=== PATIENT | male | born 1935 | race Caucasian/White ===

== ENCOUNTER 2017-01-29 18:07 | Inpatient (IN) | payer OTHER, MEDICARE ==
[~2017-01-29] VITALS: Ht 175.3 cm; Wt 76.6 kg
[2017-01-29 18:15] VITALS: BP 118/56; PULSE 89; RESP 18; TEMP 98.4; O2SAT 96
[2017-01-29 18:18] VITALS: BP 118/56; PULSE 89; RESP 18; TEMP 98.7; O2SAT 93
[2017-01-29] MEDS ORDERED: ONDANSETRON HCL 4 MG/2 ML VIAL IV ONE (18:30)
[2017-01-29] MEDS ORDERED: PIPERACIL-TAZO 4.5 GM PREMIX 100 ML IV STA (18:30)
[2017-01-29 18:35] VITALS: BP 114/59; PULSE 89; RESP 22; TEMP 98.8; O2SAT 96
[2017-01-29] MEDS ORDERED: SODIUM CHLOR 0.9% 1000 ML INJ 1,000 ML IV SCH (18:45)
--- NOTE | 2017-01-29 18:49 | RADRPT ---
EXAM DATE/TIME: 01/29/2017 18:41 [place] COMPARISON: No previous studies available for comparison. INDICATIONS : Short of breath, fever, and vomiting. MEDICAL HISTORY : None. SURGICAL HISTORY : None. ENCOUNTER: Initial ACUITY: 1 day PAIN SCORE: 0/10 LOCATION: Bilateral chest FINDINGS: A single view of the chest demonstrates tortuous aorta. Minimal basilar atelectasis. No focal consoli dation. No effusion. No pneumothorax. CONCLUSION: 1. Minimal basilar atelectasis. Tortuous aorta. No effusion or pneumothorax. Mike Valenzuela MD on January 29, 2017 at 18:46 Board Certified Radiologist. This report was verified electronically.
[2017-01-29 19:08] LABS: AUTOMATED NEUTROPHIL # 7.1 TH/MM3 (1.8-7.7); BASOPHIL % 0.2 % (0.0-2.0); EOSINOPHIL % 0.4 % (0.0-4.0); HEMATOCRIT 46.6 % (39.0-51.0); LYMPHOCYTE # 0.1 TH/MM3 (1.0-4.8); MEAN CELL VOLUME 98.2 FL (80.0-100.0); MEAN CORPUSCULAR HEMOGLOBIN 32.3 PG (27.0-34.0); MEAN CORPUSCULAR HGB CONC 32.9 % (32.0-36.0); MONO % 0.7 % (0.0-8.0); NEUT % 96.7 % (16.0-70.0); PLATELET COUNT 235 TH/MM3 (150-450); RED BLOOD COUNT 4.74 MIL/MM3 (4.50-5.90); RED CELL DISTRIBUTION WIDTH 12.7 % (11.6-17.2); WHITE BLOOD COUNT 7.3 TH/MM3 (4.0-11.0)
[2017-01-29 19:21] LABS: HEMO FLAGS DIFF FINAL
--- NOTE | 2017-01-29 19:22 | PD ---
HPI Chief Complaint: Fever Time Seen by Provider: 18:30 Travel History International Travel<30 days: No Contact w/Intl Traveler<30days: No Traveled to known affect area: No History of Present Illness HPI 81-year-old male presents today with complaint of fever chills, nausea vomiting and urinary tract infection. Patient has a history of urinary incontinence and has to self catheter himself at times. He states that 2 days ago he noted dysuria and cloudy urine. He states that he started taking antibiotics. He reports today feeling fever and chills. He also reports nausea vomiting 3 episodes. There is no other complaints time my examination. PFSH Past Medical History Cancer: Yes (prostate with radiation) Cardiovascular Problems: Yes Genitourinary: Yes (prostate ca, frequent bladder/UTI infections) Tetanus Vaccination: Unknown Past Surgical History Abdominal Surgery: Yes (gallbladder) Genitourinary Surgery: Yes (suprapubic catheter) Social History Alcohol Use: Yes (wine occassionally ) Tobacco Use: No Substance Use: No Allergies-Medications (Allergen,Severity, Reaction): Coded Allergies: Codeine (Verified Allergy, Unknown, 01/29/17) Review of Systems Except as stated in HPI: all other systems reviewed are Neg General / Constitutional: Positive: Fever, Chills HENT: No: Headaches, Neck Pain Cardiovascular: No: Chest Pain or Discomfort, Palpitations Respiratory: Positive: Cough (occasional cough with no colored phlegm), No: Shortness of Breath Gastrointestinal: Positive: Nausea, Vomiting, No: Diarrhea, Abdominal Pain Genitourinary: Positive: Dysuria, Incontinence Musculoskeletal: No: Weakness, Pain Neurologic: No: Weakness, Headache Physical Exam Narrative GENERAL: Well-developed well-nourished male in no acute distress. SKIN: Focused skin assessment warm/dry. HEAD: Atraumatic. Normocephalic. EYES: No scleral icterus. No injection or drainage. ENT: No nasal bleeding or discharge. Mucous membranes pink and moist. NECK: Trachea midline. Supple. CARDIOVASCULAR: Regular rate and rhythm. No murmur appreciated. RESPIRATORY: No accessory muscle use. Clear to auscultation. Breath sounds equal bilaterally. GASTROINTESTINAL: Abdomen soft, non-tender, nondistended. MUSCULOSKELETAL: No obvious deformities. No clubbing. No cyanosis. No edema. NEUROLOGICAL: Awake and alert. No obvious cranial nerve deficits. Motor grossly within normal limits. Normal speech. Data Data Last Documented VS Vital Signs Date Time Temp Pulse Resp B/P Pulse Ox O2 Delivery O2 Flow Rate FiO2 01/29/17 18:35 98.8 89 22 114/59 96 Nasal Cannula 2 Orders Complete Blood Count With Diff (01/29/17 18:30) Comprehensive Metabolic Panel (01/29/17 18:30) Lactic Acid Sepsis Protocol (01/29/17 18:30) Urinalysis - C+S If Indicated (01/29/17 18:30) Blood Culture (01/29/17 18:30) Chest, Single Ap (01/29/17 18:30) Blood Glucose (01/29/17:30) Ecg Monitoring (01/29/17:30) Iv Access Insert/Monitor (01/29/17:30) Oximetry (01/29/17 18:30) Oxygen Administration (01/29/17 18:30) Ondansetron Inj (Zofran Inj) (01/29/17 18:30) Piperacil-Tazo 4.5 Gm Premix (Zosyn 4.5 (01/29/17 18:30) Sodium Chlor 0.9% 1000 Ml Inj (Ns 1000 M (01/29/17 18:45) MDM Medical Decision Making Medical Screen Exam Complete: Yes Emergency Medical Condition: Yes Differential Diagnosis Pneumonia versus urosepsis versus bronchitis Narrative Course 81-year-old male presents with fevers chills nausea vomiting 24-36 hours. The patient states that he felt as though he had a urinary tract infection. He took his home antibiotics. Patient's workup is been initiated. He'll be signed out to Dr. Velez, physician replacing this physician at change of shift. Disposition and further treatment will be per Dr. Velez. Diagnosis Primary Impression: Sepsis Additional Impression: urinary tract infection, partially treated Laci Edward MD Jan 29, 2017 19:22
[2017-01-29 19:24] LABS: ALT (GPT) 33 U/L (12-78)
[2017-01-29 19:27] LABS: ALKALINE PHOSPHATASE 111 U/L (45-117); TOTAL BILIRUBIN ADULT 1.2 MG/DL (0.2-1.0)
[2017-01-29 19:31] LABS: ANION GAP 10 MEQ/L (5-15); AST (GOT) 52 U/L (15-37); BICARBONATE 22.9 MEQ/L (21.0-32.0); BLOOD UREA NITROGEN 18 MG/DL (7-18); CHLORIDE 105 MEQ/L (98-107); GLOMERULAR FILTRATION RATE 58 ML/MIN (>89); SODIUM (NA) 138 MEQ/L (136-145)
[2017-01-29 20:53] LABS: BACTERIA, URINE FEW /hpf; BLOOD, URINE MOD (NEG); COMMENT (UR) CATH-CULTURE IND; CULTURE IF INDICATED CATH CULTURE IND; GLUCOSE,URINE NEG (NEG); KETONE, URINE NEG (NEG); MUCUS URINE FEW /lpf (OCC); NITRITE,URINE NEG (NEG); PH, URINE 5.5 (5.0-8.5); SQUAMOUS EPITHELIAL CELL URINE 1 /hpf (0-5); URINE COLOR YELLOW (YELLW/STRAW)
[2017-01-29 21:17] VITALS: BP 84/52; PULSE 86; RESP 16; O2SAT 95
--- NOTE | 2017-01-29 21:19 | PD ---
Physical Exam Narrative Patient signed out to me by Dr. Edward to follow up testing and admit. Please see his documentation for full details. Briefly, patient is an 81-year-old male who occasionally has to self catheter to urinate. He was told by his physician to take antibiotics if he does have to do this. About 4 days ago he had self catheter, and he started himself on Macrobid. He has taken 4 days of the antibiotic, but developed fever and chills. He says he has pain with urination. Data Data Last Documented VS Vital Signs Date Time Temp Pulse Resp B/P Pulse Ox O2 Delivery O2 Flow Rate FiO2 01/29/17 21:17 86 16 84/52 95 Nasal Cannula 2 01/29/17 18:35 98.8 Orders Complete Blood Count With Diff (01/29/17 18:30) Comprehensive Metabolic Panel (01/29/17 18:30) Lactic Acid Sepsis Protocol (01/29/17 18:30) Urinalysis - C+S If Indicated (01/29/17 18:30) Blood Culture (01/29/17 18:30) Chest, Single Ap (01/29/17 18:30) Blood Glucose (01/29/17 18:30) Ecg Monitoring (01/29/17 18:30) Iv Access Insert/Monitor (01/29/17 18:30) Oximetry (01/29/17 18:30) Oxygen Administration (01/29/17 18:30) Ondansetron Inj (Zofran Inj) (01/29/17 18:30) Piperacil-Tazo 4.5 Gm Premix (Zosyn 4.5 (01/29/17 18:30) Sodium Chlor 0.9% 1000 Ml Inj (Ns 1000 M (01/29/17 18:45) Cath For Specimen (01/29/17 19:45) Urine Culture (01/29/17 20:20) Sodium Chlor 0.9% 1000 Ml Inj (Ns 1000 M (01/29/17 21:30) Labs Laboratory Tests Test 01/29/17 01/29/17 01/29/17 18:30 20:20 20:25 White Blood Count 7.3 TH/MM3 Red Blood Count 4.74 MIL/MM3 Hemoglobin 15.3 GM/DL Hematocrit 46.6 % Mean Corpuscular Volume 98.2 FL Mean Corpuscular Hemoglobin 32.3 PG Mean Corpuscular Hemoglobin 32.9 % Concent Red Cell Distribution Width 12.7 % Platelet Count 235 TH/MM3 Mean Platelet Volume 8.5 FL Neutrophils (%) (Auto) 96.7 % Lymphocytes (%) (Auto) 2.0 % Monocytes (%) (Auto) 0.7 % Eosinophils (%) (Auto) 0.4 % Basophils (%) (Auto) 0.2 % Neutrophils # (Auto) 7.1 TH/MM3 Lymphocytes # (Auto) 0.1 TH/MM3 Monocytes # (Auto) 0.1 TH/MM3 Eosinophils # (Auto) 0.0 TH/MM3 Basophils # (Auto) 0.0 TH/MM3 CBC Comment DIFF FINAL Differential Comment Sodium Level 138 MEQ/L Potassium Level 5.0 MEQ/L Chloride Level 105 MEQ/L Carbon Dioxide Level 22.9 MEQ/L Anion Gap 10 MEQ/L Blood Urea Nitrogen 18 MG/DL Creatinine 1.19 MG/DL Estimat Glomerular Filtration 58 ML/MIN Rate Random Glucose 82 MG/DL Calcium Level 8.8 MG/DL Total Bilirubin 1.2 MG/DL Aspartate Amino Transf 52 U/L (AST/SGOT) Alanine Aminotransferase 33 U/L (ALT/SGPT) Alkaline Phosphatase 111 U/L Total Protein 7.3 GM/DL Albumin 3.4 GM/DL Urine Color YELLOW Urine Turbidity HAZY Urine pH 5.5 Urine Specific [place] 1.026 Urine Protein 30 mg/dL Urine Glucose (UA) NEG mg/dL Urine Ketones NEG mg/dL Urine Occult Blood MOD Urine Nitrite NEG Urine Bilirubin NEG Urine Urobilinogen LESS THAN 2.0 MG/DL Urine Leukocyte Esterase LARGE Urine RBC 13 /hpf Urine WBC 49 /hpf Urine Squamous Epithelial 1 /hpf Cells Urine Bacteria FEW /hpf Urine Mucus FEW /lpf Microscopic Urinalysis Comment CATH-CULTURE IND Lactic Acid Level 2.3 mmol/L MDM Supervised Visit with JAIME: No Narrative Course Urinalysis is positive for UTI. Patient was given Zosyn by Dr. Edward. He and episode of hypotension, given IV fluids. Patient will be admitted for further management. Diagnosis Primary Impression: Sepsis Qualified Code: A41.9 - Sepsis, due to unspecified organism Additional Impression: urinary tract infection, partially treated Admitting Information Admitting Physician Requests: Admit Condition: Stable April Rankin MD Jan 29, 2017 21:19
[2017-01-29] MEDS: SODIUM CHLOR 0.9% 1000 ML INJ 1,000 ML IV SCH (21:29)
[2017-01-29] MEDS ORDERED: LACTULOSE SYRUP 20 GM/30 ML CUP PO PRN (21:30)
[2017-01-29] MEDS ORDERED: BISACODYL 10 MG SUPP RECTAL PRN (21:30)
[2017-01-29] MEDS ORDERED: ONDANSETRON HCL 4 MG/2 ML VIAL IVP PRN (21:30)
[2017-01-29] MEDS ORDERED: MAGNESIUM HYDROXIDE SUSP 30 ML CUP PO PRN (21:30)
[2017-01-29] MEDS ORDERED: MORPHINE SULFATE 4 MG/ML INJ IV PRN (21:30)
[2017-01-29] MEDS ORDERED: SENNOSIDES 8.6 MG TAB PO PRN (21:30)
[2017-01-29] MEDS ORDERED: SODIUM CHLOR 0.9% 1000 ML INJ 1,000 ML IV ONE (21:30)
[2017-01-29] MEDS ORDERED: SODIUM CHLORIDE 0.9% FLUSH 10 ML FLUSH IV FLUSH PRN (21:30)
[2017-01-29 21:34] VITALS: BP 94/54
--- NOTE | 2017-01-29 21:36 | HHI.HP ---
[facility] Primary Care Physician Arnaldo Canales M.D. Admission Diagnosis Diagnoses: (1) UTI (urinary tract infection) Diagnosis: Principal (2) Failure of outpatient treatment Diagnosis: Principal (3) Lactic acidosis Diagnosis: Principal (4) Hypotension Diagnosis: Principal (5) Dehydration Diagnosis: Principal Travel History International Travel<30 Days: No Contact w/Intl Traveler <30 Da: No Traveled to Known Affected Are: No History of Present Illness This is an 81-year-old male with a PMH of Prostate CA, Urinary Incontinence requiring Self-Catheterization and h/o Recurrent UTI who presented to the ER w/ complaints of fever and chills starting earlier today. Has been on antibiotics for UTI x4 days, now w/ fever/chills. On arrival, BP 180/56, HR 89, O2 sat 96% on RA, Afebrile. In the ER, had transient episode of hypotension with BP 84/52 , HR 86 s/p IVF w/ improvement. The WBC normal, elevated neutrophil count. GFR 58. Lactic Acid 2.3, repeat pending. UA with UTI. CXR with minimal basilar atelectasis. S/p Zosyn in ER. Review of Systems Except as stated in HPI: all other systems reviewed are Neg ROS: 14 point review of systems otherwise negative. Past Family Social History Past Medical History PMH: Prostate CA, Urinary Incontinence requiring Self-Catheterization and h/o Recurrent UTI Past Surgical History PAST SURGICAL HISTORY: Cholecystectomy Allergies: Coded Allergies: Codeine (Verified Allergy, Unknown, 01/29/17) Family History PAST FAMILY HISTORY: Reviewed. No h/o DM or CAD Social History PAST SOCIAL HISTORY: Occasional alcohol. Negative for tobacco or drugs. Physical Exam Vital Signs Vital Signs Date Time Temp Pulse Resp B/P Pulse Ox O2 Delivery O2 Flow Rate FiO2 01/29/17 21:34 94/54 01/29/17 21:17 86 16 84/52 95 Nasal Cannula 2 01/29/17 18:35 98.8 89 22 114/59 96 Nasal Cannula 2 01/29/17 18:35 94 Nasal Cannula 2 01/29/17 18:18 98.7 89 18 118/56 93 Room Air 01/29/17 18:18 18 93 Room Air 01/29/17 18:15 98.4 89 18 118/56 96 Physical Exam PE: GENERAL: Pleasant elderly white male in no acute distress. HEENT: PERRLA, EOMI. No scleral icterus or conjunctival pallor. No lid lag or facial droop. CARDIOVASCULAR: Regular rate and rhythm. No obvious murmurs to auscultation. No chest tenderness to palpation. RESPIRATORY: No obvious rhonchi or wheezing. Clear to auscultation. Breath sounds equal bilaterally. GASTROINTESTINAL: Abdomen soft, non-tender, nondistended. BS normal. MUSCULOSKELETAL: Extremities without clubbing, cyanosis, or edema. No obvious deformities. NEUROLOGICAL: Awake, alert and oriented x4. No focal neurologic deficits. Moving both upper and lower extremities spontaneously. Laboratory Laboratory Tests Test 01/29/17 01/29/17 01/29/17 18:30 20:20 20:25 White Blood Count 7.3 Red Blood Count 4.74 Hemoglobin 15.3 Hematocrit 46.6 Mean Corpuscular Volume 98.2 Mean Corpuscular Hemoglobin 32.3 Mean Corpuscular Hemoglobin 32.9 Concent Red Cell Distribution Width 12.7 Platelet Count 235 Mean Platelet Volume 8.5 Neutrophils (%) (Auto) 96.7 Lymphocytes (%) (Auto) 2.0 Monocytes (%) (Auto) 0.7 Eosinophils (%) (Auto) 0.4 Basophils (%) (Auto) 0.2 Neutrophils # (Auto) 7.1 Lymphocytes # (Auto) 0.1 Monocytes # (Auto) 0.1 Eosinophils # (Auto) 0.0 Basophils # (Auto) 0.0 CBC Comment DIFF FINAL Differential Comment Sodium Level 138 Potassium Level 5.0 Chloride Level 105 Carbon Dioxide Level 22.9 Anion Gap 10 Blood Urea Nitrogen 18 Creatinine 1.19 Estimat Glomerular Filtration 58 Rate Random Glucose 82 Calcium Level 8.8 Total Bilirubin 1.2 Aspartate Amino Transf 52 (AST/SGOT) Alanine Aminotransferase 33 (ALT/SGPT) Alkaline Phosphatase 111 Total Protein 7.3 Albumin 3.4 Urine Color YELLOW Urine Turbidity HAZY Urine pH 5.5 Urine Specific [place] 1.026 Urine Protein 30 Urine Glucose (UA) NEG Urine Ketones NEG Urine Occult Blood MOD Urine Nitrite NEG Urine Bilirubin NEG Urine Urobilinogen LESS THAN 2.0 Urine Leukocyte Esterase LARGE Urine RBC 13 Urine WBC 49 Urine Squamous Epithelial 1 Cells Urine Bacteria FEW Urine Mucus FEW Microscopic Urinalysis Comment CATH-CULTURE IND Lactic Acid Level 2.3 Date/Time Procedure Status Source Growth 01/29/17 20:20 Urine Culture Received Urine Catheterized Urine Pending 01/29/17 18:40 Aerobic Blood Culture Received Blood Peripheral Pending 01/29/17 18:40 Anaerobic Blood Culture Received Blood Peripheral Pending Result Diagram: 01/29/17182901/29/171829 Assessment and Plan Problem List: (1) UTI (urinary tract infection) ICD Code: N39.0 Status: Acute (2) Failure of outpatient treatment ICD Code: Z78.9 Status: Acute (3) Lactic acidosis ICD Code: E87.2 Status: Acute (4) Dehydration ICD Code: E86.0 Status: Acute (5) Hypotension ICD Code: I95.9 Status: Acute Assessment and Plan A/P: 1. UTI: U/a w/ UTI. H/o Recurrent UTI due to self-catheterization from urinary incontinence. S/p Zosyn in ER, will follow up Urine Culture, continue IV Abx, IVF for hydration. 2. Failed Outpatient Tx: On Macrobid x4 days, now w/ persistent UTI. Will continue w/ treatment as above. 3. Lactic Acidosis: Lactate 2.3, repeat Lactate pending. IVF for hydration, will follow up. 4. Dehydration: GFR 58, no previous labs for comparison. BUN/Creatinine normal. IVF for hydration, repeat labs in am. 5. Hypotension: BP 118/56, HR 89 on arrival, while in the ER had transient she with BP 84/52, HR 86. S/p IVF w/ improvement, BP currently 94/54, HR 82. Continue IVF, monitor BP. 6. DVT Prophylaxis: SCD/Teds. 7. Social work for d/c planning as needed. 8. Case discussed w/ ER physician at length. Physician Certification 2 Midnight Certification Type: Admission for Inpatient Services Order for Inpatient Services The services are ordered in accordance with Medicare regulations or non- Medicare payer requirements, as applicable. In the case of services not specified as inpatient-only, they are appropriately provided as inpatient services in accordance with the 2-midnight benchmark. Estimated LOS (days): 2 days is the estimated time the patient will need to remain in the hospital, assuming treatment plan goals are met and no additional complications. Post-Hospital Plan: Not yet determined Valentine Durham MD Jan 29, 2017 21:36
[2017-01-29 22:00] VITALS: PULSE 81
[2017-01-29 22:37] LABS: LACTIC ACID GHOST NOT REPORTABLE
[2017-01-29] MEDS ORDERED: SODIUM CHLORID 0.9% 500 ML INJ 500 ML IV ONE (23:15)
[2017-01-30] VITALS (68 sets, daily range): BP systolic 78–130; BP diastolic 42–68; PULSE 52–84; RESP 16–41; TEMP 98–100.2; O2SAT 91–100
[2017-01-30] MEDS ORDERED: SODIUM CHLOR 0.9% 1000 ML INJ 1,000 ML IV ONE (00:30)
--- NOTE | 2017-01-30 02:49 | PD.CONS ---
[facility] Service Critical Care Medicine Consult Requested By Beverly Larson Reason for Consult Critical care management of septic shock Primary Care Physician Arnaldo Canales M.D. History of Present Illness 81-year-old male with past medical history of prostate cancer status post radiation, urinary incontinence and intermittent in and out cath who presented to [facility] emergency department via [facility] with 2 day history of urinary discomfort. He states that on 01/29 he developed chills and rigors. He vomited 3. He denies flank pain or hematuria. ED workup demonstrated U/a c/w UTI. WBC is normal but with left shift. He states he was febrile per [facility]. He was normotensive initially with SBP 118/56 MAP 76, arriving at around 18:00 on 01/29. Lactic acid was 2.3. He was given Zosyn and 1 LNS bolus, MIVF and admitted to the floor by hospitalist. At around 23: 00 he developed hypotension and was given an additional 1.5 L bolus. Another 500 mL IV bolus is given but BP is 78/42 with MAP 54. Lactic acid has had a slight uptrend to 2.6. He is on NC. Denies CP or SOB. He is being transferred to [facility]. He states he has h/o prostate cancer with radiation ~15-20 years ago. Denies prostate surgery. States he had suprapubic cath about 6-7 years ago, was removed about 3-4 years ago. He is followed by Dr. Ivory with [facility] in [facility]. He has urinary incontinence and wears adult diaper. He states he does I/O cath on an as needed basis when he feels symptoms of urinary retention which ends up being approximately once every 2 weeks. He has had recurrent UTI, and therefore states he takes Macrobid for ~5 days starting each time that he does I/O cath. He states he started macrobid about 3-4 days ago which is the last time he did I/O cath. States he has been hospitalized for UTI in the past but last occasion requiring hospitalization was 6-7 years ago in [place]. He is unaware of any history of MDRO. Review of Systems Constitutional: COMPLAINS OF: Fever, Chills Gastrointestinal: COMPLAINS OF: Nausea, Anorexia Genitourinary: COMPLAINS OF: Urinary incontinence, Dysuria Past Family Social History Allergies: Coded Allergies: Codeine (Verified Allergy, Unknown, 01/29/17) Past Medical History Prostate cancer status post radiation 15-20 years ago Urinary incontinence Hard of hearing Past Surgical History Laparoscopic cholecystectomy Suprapubic urinary catheter placed 6-7 years ago (subsequently has been removed) Reported Medications Macrobid Family History He denies family history of cancer or heart disease Social History [id number] history of smoking. Quit at age 33. Drinks alcohol occasionally (wine) Denies use of illicit drugs and lives at home with his . Ambulates without assistance at baseline. He was previously living in [place] and relocated to [facility] about 4 years ago. His primary care physician is Dr. Choi. Physical Exam Vital Signs Vital Signs Date Time Temp Pulse Resp B/P Pulse Ox O2 Delivery O2 Flow Rate FiO2 01/30/17 00:00 98.0 84 16 78/42 94 01/29/17 21:34 94/54 01/29/17 21:17 86 16 84/52 95 Nasal Cannula 2 01/29/17 18:35 98.8 89 22 114/59 96 Nasal Cannula 2 01/29/17 18:35 94 Nasal Cannula 2 01/29/17 18:18 98.7 89 18 118/56 93 Room Air 01/29/17 18:18 18 93 Room Air 01/29/17 18:15 98.4 89 18 118/56 96 Physical Exam Temp 98, Pulse 80s, sinus rhythm on the monitor blood pressure 78/42, sats 98% on 3 L nasal cannula GENERAL: Elderly male who appears younger than stated age. Hard of hearing but alert and conversant. I assisted him with replacing his left hearing aid. SKIN: Warm and dry, no diaphoresis. HEAD: Atraumatic. Normocephalic. EYES: Pupils equal and round, 2 mm and reactive bilaterally. No scleral icterus. No injection or drainage. ENT: No nasal bleeding or discharge. Mucous membranes pink and moist. NECK: Trachea midline. No JVD. CARDIOVASCULAR: S1 and S2, regular, sinus rhythm on the monitor. No murmurs rubs or gallops appreciated. RESPIRATORY: Mild tachypnea without accessory muscle use. No wheezes Rales or rhonchi. GASTROINTESTINAL: Abdomen soft, some suprapubic distention just inferior to umbilicus. No tenderness, rebound, guarding. Bowel sounds present. No CVA tenderness. MUSCULOSKELETAL: Extremities without clubbing, cyanosis, or edema. No obvious deformities. NEUROLOGICAL: Awake and alert. No obvious cranial nerve deficits, though he is hard of hearing.. Motor grossly within normal limits. Moves all extremities spontaneously without focal deficit. Normal speech. Laboratory Laboratory Tests Test 01/29/17 01/29/17 01/29/17 01/29/17 18:30 20:20 20:25 23:25 White Blood Count 7.3 Red Blood Count 4.74 Hemoglobin 15.3 Hematocrit 46.6 Mean Corpuscular Volume 98.2 Mean Corpuscular Hemoglobin 32.3 Mean Corpuscular Hemoglobin 32.9 Concent Red Cell Distribution Width 12.7 Platelet Count 235 Mean Platelet Volume 8.5 Neutrophils (%) (Auto) 96.7 Lymphocytes (%) (Auto) 2.0 Monocytes (%) (Auto) 0.7 Eosinophils (%) (Auto) 0.4 Basophils (%) (Auto) 0.2 Neutrophils # (Auto) 7.1 Lymphocytes # (Auto) 0.1 Monocytes # (Auto) 0.1 Eosinophils # (Auto) 0.0 Basophils # (Auto) 0.0 CBC Comment DIFF FINAL Differential Comment Sodium Level 138 Potassium Level 5.0 Chloride Level 105 Carbon Dioxide Level 22.9 Anion Gap 10 Blood Urea Nitrogen 18 Creatinine 1.19 Estimat Glomerular Filtration 58 Rate Random Glucose 82 Calcium Level 8.8 Total Bilirubin 1.2 Aspartate Amino Transf 52 (AST/SGOT) Alanine Aminotransferase 33 (ALT/SGPT) Alkaline Phosphatase 111 Total Protein 7.3 Albumin 3.4 Urine Color YELLOW Urine Turbidity HAZY Urine pH 5.5 Urine Specific [place] 1.026 Urine Protein 30 Urine Glucose (UA) NEG Urine Ketones NEG Urine Occult Blood MOD Urine Nitrite NEG Urine Bilirubin NEG Urine Urobilinogen LESS THAN 2.0 Urine Leukocyte Esterase LARGE Urine RBC 13 Urine WBC 49 Urine Squamous Epithelial 1 Cells Urine Bacteria FEW Urine Mucus FEW Microscopic Urinalysis Comment CATH-CULTURE IND Lactic Acid Level 2.3 2.6 Date/Time Procedure Status Source Growth 01/29/17 20:20 Urine Culture Received Urine Catheterized Urine Pending 01/29/17 18:40 Aerobic Blood Culture Received Blood Peripheral Pending 01/29/17 18:40 Anaerobic Blood Culture Received Blood Peripheral Pending Result Diagram: 01/29/17182901/29/171829 Septic Shock Reassessment Heart: Regular rate and rhythm Lungs: Clear Skin: Warm Peripheral Pulses: Weak Right Radial Weak Left Radial Weak Right Posterior Tibial Weak Left Posterior Tibial Capillary Refill: Sluggish Assessment and Plan Assessment and Plan NEURO: Hard of hearing Awake and oriented Hearing aid left ear. RESP: Mild hypoxia Nasal cannula wean as tolerated. Incentive spirometry every hour awake. CV: Septic shock Lactic acidemia Monitor hemodynamics Serial lactic acid per sepsis protocol. Placing central venous line and will initiate Levophed to maintain MAP greater than 65. Monitor CVP. GI: Regular diet Bowel regimen per protocol. Zantac as per below FEN/RENAL/UROLOGY: Urinary incontinence Urinary retention, self cath at home with coude Insert coude catheter now as he appears to have ongoing urinary retention, monitor urine output q1hr during resuscitation for septic shock. Monitor BMP. Monitor electrolytes and replace as indicated. Avoid nephrotoxins when possible. Creatinine clearance calculated 47 Follow-up renal ultrasound Routine consult of urology, patient known to Dr. Ivory ID: Acute Urinary tract infection, complicated by urinary tract obstruction in the form of bladder distension/ h/o self cath Septic shock Hemodynamic monitoring and resuscitation as per above. Receive Zosyn 4.5 g IV in the emergency department. Will continue Zosyn 3.375 g IV every 6 hours (dosed based on calculated creatinine clearance of 47) Tobramycin 300 mg IV x1 . Risk/benefit d/w patient. Patient denies known history of multidrug resistant organism and last hospitalization was 6-7 years ago. Follow-up urine culture and blood culture. Called microbiology for gram stain but not yet available. Will be revaluated later this morning and requested call to floor when available. HEME: No acute hematologic issues. ENDO: Euglycemic PROPH: Zantac daily for stress ulcer prophylaxis. Lovenox 40 mg subcutaneous daily for DVT prophylaxis. ACCESS: Left IJ central venous line placed 01/30/17 #1 Discussed with Beverly Larson, discussed with floor RN, DIRECTOR OF AVIATION, microbiology department. Critical care time 50 minutes exclusive of separately billable procedures. Yoly Patel MD Jan 30, 2017 02:49
[2017-01-30] MEDS: ACETAMINOPHEN 325 MG TAB PO PRN (02:54)
[2017-01-30] MEDS ORDERED: SODIUM CHLORID 0.9% 500 ML INJ 500 ML IV ONE (03:00)
[2017-01-30] MEDS ORDERED: TERBUTALINE INJ 1 MG/ML AMP SQ PRN (03:00)
--- NOTE | 2017-01-30 04:01 | PD.PROCEDR ---
Procedure Note Procedure DATE: 01/30/17 CENTRAL LINE PLACEMENT: Left internal jugular vein. INDICATION: Central venous access CONSENT Informed consent for procedure was obtained from patient after discussion of risks, benefits, alternatives. DESCRIPTION OF THE PROCEDURE The patient was placed in supine position, mild Trendelenburg. The skin was cleansed with Chloraprep. Additional barrier precautions included large sterile drape, sterile gloves, sterile gown, face mask, and hat. 1 % lidocaine was used for local anesthesia. Under direct ultrasound guidance and on single attempt, the vein was accessed with an introducer needle. The guide wire was advanced and the tract was dilated. Using Seldinger technique a 7 Hungarian 20 cm antimicrobial coated triple-lumen catheter was advanced to a depth of 18 centimeters. The guide wire was removed. All ports had good return of dark venous blood and flushed easily with saline. The central line was secured with 2.0 silk. A sterile dressing with antibiotic disc was applied. ESTIMATED BLOOD LOSS: Minimal COMPLICATIONS: No apparent complications. STAT chest x-ray is pending Yoly Patel MD Jan 30, 2017 04:01
[2017-01-30 04:17] LABS: AUTOMATED NEUTROPHIL # 33.5 TH/MM3 (1.8-7.7); HEMATOCRIT 34.7 % (39.0-51.0); LYMPH % 2.7 % (9.0-44.0); MEAN CORPUSCULAR HEMOGLOBIN 32.3 PG (27.0-34.0); MEAN CORPUSCULAR HGB CONC 33.3 % (32.0-36.0); MONO % 4.9 % (0.0-8.0); NEUT % 92.4 % (16.0-70.0); PLATELET COUNT 202 TH/MM3 (150-450); RED BLOOD COUNT 3.58 MIL/MM3 (4.50-5.90); RED CELL DISTRIBUTION WIDTH 12.6 % (11.6-17.2); WHITE BLOOD COUNT 36.2 TH/MM3 (4.0-11.0)
[2017-01-30 04:21] LABS: HEMO FLAGS AUTO DIFF
--- NOTE | 2017-01-30 05:04 | RADRPT ---
EXAM DATE/TIME: 01/30/2017 03:49 [facility] COMPARISON: CHEST SINGLE AP, January 29, 2017, 18:41. INDICATIONS : Central line placement. MEDICAL HISTORY : None. SURGICAL HISTORY : None. ENCOUNTER: Subsequent ACUITY: 2 days PAIN SCORE: 0/10 LOCATION: Bilateral chest FINDINGS: A single view of the chest demonstrates that the lungs to be symmetrically aerated without evidence o f mass or effusion. The study is mild Wes Midinspiratory with crowding of the lung vasculature. There is mild cardiomegaly and atherosclerotic ossifications and dilatation are noted in the aorta. T he perihilar regions appear more prominent. Osseous structures are intact. There is been interval baldo cement of a left internal jugular central venous line with the tip projected over the superior vena c phill. There is no pneumothorax. CONCLUSION: 1. Interval placement of left internal jugular central venous line with no pneumothorax aerated 2. Cardiomegaly with increased prominence in the perihilar regions Volodymyr Carroll MD on January 30, 2017 at 5:00 Board Certified Radiologist. This report was verified electronically.
[2017-01-30] MEDS: PIPERACIL-TAZO 3.375 GM PREMIX 50 ML IV SCH ×4 (05:07→21:22)
[2017-01-30 05:08] LABS: BICARBONATE 20.9 MEQ/L (21.0-32.0); CALCIUM-PROTEIN CORRECTED 8.3 MG/DL (8.5-10.1); POTASSIUM 3.6 MEQ/L (3.5-5.1); TOTAL BILIRUBIN ADULT 0.8 MG/DL (0.2-1.0)
[2017-01-30] MEDS: NOREPINEPHRINE-DEXTROSE DRIP 250 ML IV SCH ×2 (05:08→21:03)
[2017-01-30] MEDS: SODIUM CHLOR 0.9% 1000 ML INJ 1,000 ML IV SCH ×2 (05:08→06:39)
[2017-01-30] MEDS: ENOXAPARIN SODIUM 40 MG/0.4 ML SYRINGE SQ SCH (05:08)
[2017-01-30] MEDS: SODIUM CHLORIDE 0.9% FLUSH 10 ML FLUSH IV FLUSH SCH ×2 (09:00→21:23)
[2017-01-30] MEDS ORDERED: cefTRIAXone INJ 1,000 MG in SODIUM CHLORIDE 0.9% INJ 100 ML IV SCH (09:00)
[2017-01-30] MEDS: DOCUSATE SODIUM 50 MG/SENNA 8.6 MG TAB PO SCH ×2 (09:00→21:22)
--- NOTE | 2017-01-30 09:22 | RADRPT ---
EXAM DATE/TIME: 01/30/2017 07:21 [facility] COMPARISON: No previous studies available for comparison. INDICATIONS : Bladder retention. MEDICAL HISTORY : Carcinoma, prostate. Frequent bladder/UTI infections. Dysuria. Incontinence. SURGICAL HISTORY : Cholecystectomy. Suprapubic catheter. Radiation therapy. ENCOUNTER: Initial ACUITY: 1 day PAIN SCORE: 2/10 LOCATION: Bilateral flank MEASUREMENTS: RIGHT KIDNEY: 11.4 x 5.4 x 5.5 cm LEFT KIDNEY: 11.1 x 5.4 x 5.3 cm FINDINGS: RIGHT KIDNEY: Multiple cysts are noted in normal size kidney, the largest measuring 2.7 cm. Probable nonobstructin g stone. LEFT KIDNEY: Renal cortex is normal in thickness and echotexture. No hydronephrosis, stone, or mass. BLADDER: Within normal limits given the degree of distension. CONCLUSION: There is no hydronephrosis. Right renal cyst. non Obstructing right renal stone. The kidneys are normal in size. Emmanuel Pulido MD FACR on January 30, 2017 at 9:18 Board Certified Radiologist. This report was verified electronically.
[2017-01-30 09:37] LABS: BANDS 25 % (0-6); METAMYELOCYTES 7 % (0-1); MYELOCYTES 2 % (0-0); NEUTROPHIL # MANUAL DIFF 31.1 TH/MM3 (1.8-7.7); PLATELET ESTIMATE SMEAR NORMAL (NORMAL); PLATELET MORPHOLOGY NORMAL (NORMAL); POLYS (SEG NEUTROPHILS) 52 % (16-70); SCAN/DIFF FINAL DIFF MANUAL; WBC DIFF SAMPLE 100
[2017-01-30] MEDS ORDERED: ALBUMIN HUMAN 5% 25 GM/500 ML BOTTLE IV ONE (09:45)
--- NOTE | 2017-01-30 21:31 | PD.CONS ---
HPI Service Urology Consult Requested By Reason for Consult Difficult archer Primary Care Physician Arnaldo Canales M.D. Diagnosis: (1) UTI (urinary tract infection) ICD Code: N39.0 (2) Failure of outpatient treatment ICD Code: Z78.9 (3) Lactic acidosis ICD Code: E87.2 (4) Dehydration ICD Code: E86.0 (5) Hypotension ICD Code: I95.9 History of Present Illness 81yo male with history of Prostate cancer treated with EBRT who manages his bladder with self intermittent catheterizations now admitted with UTI and sepsis. Patient has been followed by Dr. Mack for his lower urinary tract symptoms and prostate cancer history. Patient reports increasing difficulty in passing a catheter for the last few weeks. Patient developed fevers and overall malaise which brought him to the ED. Patient was found to have a distended bladder, however a archer catheter was difficult to be passed. An 8fr catheter was successfully placed, however minimal UOP noted despite proper catheter position noted on imaging with persistently distended bladder. Patient currently denies any pain, no hematuria. Review of Systems ROS Limitations: Clinical Condition Constitutional: COMPLAINS OF: Fever Endocrine: DENIES: Heat/cold intolerance Eyes: DENIES: Blurred vision Ears, nose, mouth, throat: DENIES: Hearing loss Respiratory: DENIES: Apneas, Cough Cardiovascular: DENIES: Chest pain Gastrointestinal: COMPLAINS OF: Abdominal pain, DENIES: Nausea, Vomiting Genitourinary: DENIES: Hematuria Integumentary: DENIES: Rash Hematologic/lymphatic: DENIES: Bruising Neurologic: DENIES: Headache Psychiatric: DENIES: Anxiety, Confusion Except as stated in HPI: all other systems reviewed are Neg Past Family Social History Past Medical History Prostate CA, Urinary Incontinence requiring Self-Catheterization and h/o Recurrent UTI Past Surgical History Cholecystectomy Allergies: Coded Allergies: Codeine (Verified Allergy, Unknown, 01/29/17) Active Ordered Medications Current Medications Medications (Trade) Dose Ordered Sig/Sushma Route Start Time Stop Time Status Last Admin (NS 1000 ml Inj) 1,000 ml @ 125 mls/hr Q8H IV 01/29/17 21:29 01/30/17 06:39 (NS Flush) 2 ml UNSCH PRN IV FLUSH 01/29/17 21:30 (NS Flush) 2 ml BID IV FLUSH 01/30/17 09:00 01/30/17 09:00 (Zofran Inj) 4 mg Q6H PRN IVP 01/29/17 21:30 (Tylenol) 650 mg Q6H PRN PO 01/29/17 21:30 01/30/17 02:54 (Morphine Inj) 2 mg Q3H PRN IV 01/29/17 21:30 (Micaela-Colace) 1 tab BID PO 01/30/17 09:00 (Milk Of Magnesia Liq) 30 ml Q12H PRN PO 01/29/17 21:30 (Senokot) 17.2 mg Q12H PRN PO 01/29/17 21:30 (Dulcolax Supp) 10 mg DAILY PRN RECTAL 01/29/17 21:30 Lactulose 30 ml 30 ml DAILY PRN PO 01/29/17 21:30 (Levophed-Dextrose Drip) 250 ml @ 0 mls/hr TITRATE IV 01/30/17 03:00 01/30/17 21:03 Terbutaline Sulfate 1 mg 1 mg UNSCH PRN SQ 01/30/17 03:00 (Zosyn 3.375 Gm Premix) 50 ml @ 100 mls/hr Q6H IV 01/30/17 04:00 01/30/17 15:54 (Lovenox Inj) 40 mg Q24H SQ 01/30/17 04:00 01/30/17 05:08 Family History Family history Reviewed and noncontribitory to present illness. No h/o DM or CAD. Social History Occasional alcohol. Negative for tobacco or drugs. Physical Exam Vital Signs Date Time Temp Pulse Resp B/P Pulse Ox O2 Delivery O2 Flow Rate FiO2 01/30/17 16:15 69 28 96 01/30/17 16:10 61 26 100/54 96 01/30/17 16:00 98.8 70 33 103/52 96 01/30/17 15:50 71 33 97/60 97 01/30/17 15:45 71 40 96 01/30/17 15:40 70 31 98/53 96 01/30/17 15:30 69 32 102/56 97 01/30/17 15:15 63 23 98 01/30/17 15:10 70 26 90/61 96 01/30/17 15:00 70 24 91/52 96 01/30/17 14:50 70 22 102/56 95 01/30/17 14:45 62 21 97 01/30/17 14:40 62 36 93/54 92 01/30/17 14:30 72 20 99/52 96 01/30/17 14:20 71 22 93/50 95 01/30/17 14:15 72 20 96 01/30/17 14:10 72 22 95/52 96 01/30/17 14:00 74 23 91/53 94 01/30/17 13:50 75 26 100/58 94 01/30/17 13:45 74 32 96 01/30/17 13:40 72 23 118/54 94 01/30/17 13:30 71 24 99/50 95 01/30/17 13:21 66 24 102/56 94 01/30/17 13:15 73 28 95 01/30/17 13:10 70 31 121/57 95 01/30/17 13:00 61 23 104/56 96 01/30/17 12:15 98.9 70 29 95 01/30/17 12:10 71 25 99/56 96 01/30/17 12:00 69 25 97/53 95 01/30/17 11:50 62 26 108/51 96 01/30/17 11:45 69 26 96 01/30/17 11:40 67 21 107/56 96 01/30/17 11:30 74 20 102/53 96 01/30/17 11:20 65 19 108/52 96 01/30/17 11:15 62 24 96 01/30/17 11:10 68 22 111/56 97 01/30/17 11:00 62 26 108/56 97 01/30/17 10:50 62 29 101/53 96 01/30/17 10:45 66 26 97 01/30/17 10:40 58 22 97/55 96 01/30/17 10:30 70 16 91/53 96 01/30/17 10:20 55 25 115/58 98 01/30/17 10:15 54 30 98 01/30/17 10:10 56 26 126/61 96 01/30/17 10:00 63 22 117/60 97 01/30/17 09:30 56 24 104/58 97 01/30/17 09:20 52 32 110/56 98 01/30/17 09:15 52 41 94 01/30/17 09:10 59 30 108/59 97 01/30/17 09:00 58 20 105/56 98 01/30/17 08:55 58 23 88/56 98 01/30/17 08:50 66 21 78/49 96 01/30/17 08:45 60 21 95 01/30/17 08:40 69 23 89/51 96 01/30/17 08:30 68 27 87/50 95 01/30/17 08:20 78 29 79/49 100 01/30/17 08:15 67 30 99 01/30/17 08:10 58 30 116/55 93 01/30/17 08:00 100.0 54 31 109/58 94 01/30/17 07:50 77 27 108/63 91 01/30/17 07:45 61 32 94 01/30/17 07:40 60 40 130/68 95 01/30/17 07:30 59 18 99/53 96 01/30/17 07:00 96 Nasal Cannula 3.00 01/30/17 04:23 20 01/30/17 04:10 93 Nasal Cannula 2.00 01/30/17 04:00 100.2 79 23 103/53 92 01/30/17 00:00 98.0 84 16 78/42 94 01/29/17 22:00 81 01/29/17 22:00 Nasal Cannula 3.00 01/29/17 21:34 94/54 Physical Exam GENERAL: This is a well-nourished, well-developed patient, in no apparent distress. SKIN: No rashes, ecchymoses or lesions. Cool and dry. HEAD: Atraumatic. Normocephalic. EYES: Extraocular motions intact. No scleral icterus. No injection or drainage. ENT: Nose without bleeding, purulent drainage. Airway patent. NECK: Trachea midline. No JVD or lymphadenopathy. Supple, nontender, no meningeal signs. CARDIOVASCULAR: Normal pulses RESPIRATORY: Nonlabored, equal chest rise. GASTROINTESTINAL: Abdomen soft, non-tender, nondistended. No hepato-splenomegaly , or palpable masses. No guarding. GENITOURINARY: 8Fr Archer catheter in place, draining clear yellow urine, no hematuria MUSCULOSKELETAL: Extremities without clubbing, cyanosis, or edema. NEUROLOGICAL: Awake and alert. Motor and sensory grossly within normal limits. Normal speech. Lab results reviewed: Yes Laboratory Tests Test 01/29/17 01/30/17 01/30/17 23:25 04:07 10:45 Lactic Acid Level 2.6 1.8 2.0 White Blood Count 36.2 Red Blood Count 3.58 Hemoglobin 11.6 Hematocrit 34.7 Mean Corpuscular Volume 97.0 Mean Corpuscular Hemoglobin 32.3 Mean Corpuscular Hemoglobin 33.3 Concent Red Cell Distribution Width 12.6 Platelet Count 202 Mean Platelet Volume 8.0 Neutrophils (%) (Auto) 92.4 Lymphocytes (%) (Auto) 2.7 Monocytes (%) (Auto) 4.9 Eosinophils (%) (Auto) 0.0 Basophils (%) (Auto) 0.0 Neutrophils # (Auto) 33.5 Lymphocytes # (Auto) 1.0 Monocytes # (Auto) 1.8 Eosinophils # (Auto) 0.0 Basophils # (Auto) 0.0 CBC Comment AUTO DIFF Differential Total Cells 100 Counted Neutrophils % (Manual) 52 Band Neutrophils % 25 Lymphocytes % 7 Monocytes % 7 Neutrophils # (Manual) 31.1 Metamyelocytes 7 Myelocytes 2 Differential Comment FINAL DIFF MANUAL Platelet Estimate NORMAL Platelet Morphology Comment NORMAL Sodium Level 140 Potassium Level 3.6 Chloride Level 109 Carbon Dioxide Level 20.9 Anion Gap 10 Blood Urea Nitrogen 20 Creatinine 1.25 Estimat Glomerular Filtration 55 Rate Random Glucose 101 Calcium Level 7.3 Protein Corrected Calcium 8.3 Total Bilirubin 0.8 Aspartate Amino Transf 82 (AST/SGOT) Alanine Aminotransferase 78 (ALT/SGPT) Alkaline Phosphatase 92 Total Protein 5.2 Albumin 2.4 Date/Time Procedure Status Source Growth 01/29/17 20:20 Urine Culture - Preliminary Resulted Urine Catheterized Urine 01/29/17 18:40 Aerobic Blood Culture - Preliminary Resulted Blood Peripheral NO GROWTH IN 1 DAY 01/29/17 18:40 Anaerobic Blood Culture - Preliminary Resulted Gram Negative Henri Result Diagram: 01/30/17 0407 01/30/17 0407 Personally reviewed images: Yes Imaging Last Impressions Renal Ultrasound 01/30/17 0000 Signed Impressions: Service Date/Time: Monday, January 30, 2017 07:21 - CONCLUSION: There is no hydronephrosis. Right renal cyst. non Obstructing right renal stone. The kidneys are normal in size. Emmanuel Pulido MD FACR Chest X-Ray 01/30/17 0000 Signed Impressions: Service Date/Time: Monday, January 30, 2017 03:49 - CONCLUSION: 1. Interval placement of left internal jugular central venous line with no pneumothorax aerated 2. Cardiomegaly with increased prominence in the perihilar regions Volodymyr Carroll MD Assessment and Plan Problem List: (1) UTI (urinary tract infection) ICD Code: N39.0 Status: Acute (2) Sepsis ICD Code: A41.9 Status: Acute Assessment and Plan -Attempted to place wire through 8Fr catheter in order to gain access and dilate urethra, however lumen of catheter did not allow easy passage of wire -8Fr catheter was removed -Filiform and followers were then used to dilate urethra up to 20Fr with clear urine return -A 16Fr [place] catheter was then place with clear urine return -Patient tolerated the procedure well -Maintain archer catheter in place until followup with Urology in clinic for further evaluation and voiding trial -Please call with questions Problem Qualifiers (1) Sepsis: Qualified Code: A41.9 - Sepsis, due to unspecified organism Anthony Kerr MD Jan 30, 2017 21:31
[2017-01-31] VITALS (56 sets, daily range): BP systolic 96–150; BP diastolic 54–89; PULSE 46–70; RESP 14–41; TEMP 98.1–99.4; O2SAT 87–96
[2017-01-31] MEDS: ENOXAPARIN SODIUM 40 MG/0.4 ML SYRINGE SQ SCH (04:32)
[2017-01-31] MEDS: PIPERACIL-TAZO 3.375 GM PREMIX 50 ML IV SCH ×4 (04:32→21:40)
[2017-01-31] MEDS: SODIUM CHLOR 0.9% 1000 ML INJ 1,000 ML IV SCH ×2 (04:33→16:43)
[2017-01-31] MEDS: SODIUM CHLORIDE 0.9% FLUSH 10 ML FLUSH IV FLUSH SCH ×2 (09:00→19:54)
[2017-01-31] MEDS: DOCUSATE SODIUM 50 MG/SENNA 8.6 MG TAB PO SCH ×2 (09:00→19:54)
--- NOTE | 2017-01-31 14:32 | HHI.CCPN ---
Subjective Remarks/Hospital Course 81-year-old male with past medical history of prostate cancer status post radiation, urinary incontinence and intermittent in and out cath who presented to [facility] emergency department via [facility] with 2 day history of urinary discomfort. He states that on 01/29 he developed chills and rigors. He vomited 3. He denies flank pain or hematuria. ED workup demonstrated U/a c/w UTI. WBC is normal but with left shift. He states he was febrile per [facility]. He was normotensive initially with SBP 118/56 MAP 76, arriving at around 18:00 on 01/29. Lactic acid was 2.3. He was given Zosyn and 1 LNS bolus, MIVF and admitted to the floor by hospitalist. At around 23: 00 he developed hypotension and was given an additional 1.5 L bolus. Another 500 mL IV bolus is given but BP is 78/42 with MAP 54. Lactic acid has had a slight uptrend to 2.6. He is on NC. Denies CP or SOB. He is being transferred to [facility]. He states he has h/o prostate cancer with radiation ~15-20 years ago. Denies prostate surgery. States he had suprapubic cath about 6-7 years ago, was removed about 3-4 years ago. He is followed by Dr. Ivory with [facility] in [facility]. He has urinary incontinence and wears adult diaper. He states he does I/O cath on an as needed basis when he feels symptoms of urinary retention which ends up being approximately once every 2 weeks. He has had recurrent UTI, and therefore states he takes Macrobid for ~5 days starting each time that he does I/O cath. He states he started macrobid about 3-4 days ago which is the last time he did I/O cath. States he has been hospitalized for UTI in the past but last occasion requiring hospitalization was 6-7 years ago in [place]. He is unaware of any history of MDRO. Subjective: 01/31: Afebrile. Levophed discontinued midmorning. Calderon in situ draining clear taisha urine. Some dyspnea noted, aggressive pulmonary pulmonary toileting. IV fluids decreased. Objective Vital Signs Date Time Temp Pulse Resp B/P Pulse Ox O2 Delivery O2 Flow Rate FiO2 01/31/17 09:15 93 Nasal Cannula 2.00 01/31/17 04:00 98.1 70 18 101/59 Intake and Output 01/30/17 01/30/17 01/31/17 08:00 16:00 00:00 Intake Total 1480 ml 2050 ml 4228 ml Output Total 140 ml 1120 ml 780 ml Balance 1340 ml 930 ml 3448 ml Result Diagram: 01/30/17 0407 01/30/17 0407 Other Results Microbiology Date/Time Procedure Status Source Growth 01/29/17 20:20 Urine Culture - Final Complete Urine Catheterized Urine Klebsiella Pneumoniae Imaging Last Impressions Renal Ultrasound 01/30/17 0000 Signed Impressions: Service Date/Time: Monday, January 30, 2017 07:21 - CONCLUSION: There is no hydronephrosis. Right renal cyst. non Obstructing right renal stone. The kidneys are normal in size. Emmanuel Pulido MD FACR Chest X-Ray 01/30/17 0000 Signed Impressions: Service Date/Time: Monday, January 30, 2017 03:49 - CONCLUSION: 1. Interval placement of left internal jugular central venous line with no pneumothorax aerated 2. Cardiomegaly with increased prominence in the perihilar regions Volodymyr Carroll MD Objective Remarks Temp 98, Pulse 80s, sinus rhythm on the monitor blood pressure 78/42, sats 98% on 3 L nasal cannula GENERAL: Elderly male who appears younger than stated age. Hard of hearing but alert and conversant. I assisted him with replacing his left hearing aid. SKIN: Warm and dry. HEAD: Atraumatic. Normocephalic. EYES: Pupils equal and round, 2 mm and reactive bilaterally. No scleral icterus. No injection or drainage. ENT: No nasal bleeding or discharge. Mucous membranes pink and moist. Uvula midline NECK: Trachea midline. No JVD. CARDIOVASCULAR: S1 and S2, regular, sinus rhythm on the monitor. No murmurs rubs or gallops appreciated. RESPIRATORY: Mild tachypnea without accessory muscle use. No wheezes Rales or rhonchi. GASTROINTESTINAL: Abdomen soft, some suprapubic distention just inferior to umbilicus. No tenderness, rebound, guarding. Bowel sounds present. No CVA tenderness. MUSCULOSKELETAL: Extremities without clubbing, cyanosis, or edema. No obvious deformities. NEUROLOGICAL: Awake and alert. No obvious cranial nerve deficits noted hard of hearing. Motor grossly within normal limits. Moves all extremities spontaneously without focal deficit. Normal speech. Urinary Catheter: Yes Assessment to: Continue (patient has history of prostate cancer, with stricture. Maintain Calderon per urology.) A/P Assessment and Plan NEURO: Hard of hearing Awake and oriented Hearing aid left ear. RESP: Mild hypoxia Nasal cannula wean as tolerated. Incentive spirometry every hour awake. Duo nebs PRN CV: Septic shock-resolved Lactic acidemia Monitor hemodynamics Serial lactic acid per sepsis protocol. Wean Levophed to maintain MAP greater than 65. Monitor CVP. GI: Regular diet Bowel regimen per protocol. Zantac as per below FEN/RENAL/UROLOGY: Urinary incontinence Urinary retention, self cath at home with coude catheter Monitor BMP. Monitor electrolytes and replace as indicated. Avoid nephrotoxins when possible. 01/31 renal ultrasound-right renal cysts, non obstructing right renal stone, no hydronephrosis Routine consult of urology, Usha VELIZ, patient known to Dr. Ivory ID: Acute Urinary tract infection, complicated by urinary tract obstruction in the form of bladder distension/ h/o self cath Septic shock Hemodynamic monitoring and resuscitation as per above. Receive Zosyn 4.5 g IV in the emergency department. Will continue Zosyn 3.375 g IV every 6 hours (dosed based on calculated creatinine clearance of 47) Tobramycin 300 mg IV x1 . Risk/benefit d/w patient. Patient denies known history of multidrug resistant organism and last hospitalization was 6-7 years ago. Follow-up urine culture and blood culture. HEME: No acute hematologic issues. ENDO: Euglycemic PROPH: Zantac daily for stress ulcer prophylaxis. Lovenox 40 mg subcutaneous daily for DVT prophylaxis. ACCESS: Left IJ central venous line placed 01/30/17 #2 Discussed with [employer] ERGONOMIST, and patient at bedside Critical care time 30 minutes exclusive of separately billable procedures. Physician Beverly Howell MD Jan 31, 2017 14:32
[2017-01-31 14:50] LABS: AUTOMATED NEUTROPHIL # 16.4 TH/MM3 (1.8-7.7); BASOPHIL % 0.2 % (0.0-2.0); EOSINOPHIL # 0.1 TH/MM3 (0-0.4); EOSINOPHIL % 0.8 % (0.0-4.0); HEMO FLAGS DIFF FINAL; LYMPH % 7.8 % (9.0-44.0); LYMPHOCYTE # 1.5 TH/MM3 (1.0-4.8); MEAN CELL VOLUME 98.4 FL (80.0-100.0); MEAN CORPUSCULAR HEMOGLOBIN 31.4 PG (27.0-34.0); MEAN CORPUSCULAR HGB CONC 31.9 % (32.0-36.0); MONO % 4.8 % (0.0-8.0); NEUT % 86.4 % (16.0-70.0); PLATELET COUNT 154 TH/MM3 (150-450); RED BLOOD COUNT 3.46 MIL/MM3 (4.50-5.90); RED CELL DISTRIBUTION WIDTH 13.1 % (11.6-17.2)
[2017-01-31] MEDS ORDERED: RESP: ALBUTEROL 2.5 MG/IPRATROPIUM 0.5 MG NEB (PRN) NEB (15:00)
[2017-01-31 15:16] LABS: BICARBONATE 23.3 MEQ/L (21.0-32.0); POTASSIUM 3.6 MEQ/L (3.5-5.1)
[2017-01-31 15:32] LABS: CALCIUM-PROTEIN CORRECTED 8.1 MG/DL (8.5-10.1)
--- NOTE | 2017-01-31 19:15 | HHI.PR ---
Subjective Patient symptoms today Archer catheter draining well, no pain. -Continue archer catheter with follow-up in Urology clinic for catheter management -Please call with questions Objective Result Diagram: 01/31/17 1415 01/31/17 1415 Objective Remarks Archer in place, draining clear urine Uncircumcised phallus Assessment and Plan Problem List: (1) UTI (urinary tract infection) ICD Code: N39.0 Status: Acute (2) Sepsis ICD Code: A41.9 Status: Acute Problem Qualifiers (1) Sepsis: Qualified Code: A41.9 - Sepsis, due to unspecified organism Anthony Kerr MD Jan 31, 2017 19:15
[2017-01-31] MEDS: ACETAMINOPHEN 325 MG TAB PO PRN (22:16)
[2017-02-01] VITALS (14 sets, daily range): BP systolic 103–140; BP diastolic 57–92; PULSE 45–85; RESP 14–30; TEMP 98.5–98.9; O2SAT 92–100
[2017-02-01] MEDS: ENOXAPARIN SODIUM 40 MG/0.4 ML SYRINGE SQ SCH (04:10)
[2017-02-01] MEDS: PIPERACIL-TAZO 3.375 GM PREMIX 50 ML IV SCH ×4 (04:10→21:43)
[2017-02-01 04:11] LABS: HEMATOCRIT 34.5 % (39.0-51.0); MEAN CELL VOLUME 98.4 FL (80.0-100.0); MEAN CORPUSCULAR HEMOGLOBIN 31.4 PG (27.0-34.0); PLATELET COUNT 152 TH/MM3 (150-450); REVIEW FLAG FINAL; WHITE BLOOD COUNT 15.2 TH/MM3 (4.0-11.0)
[2017-02-01 04:12] LABS: BICARBONATE 24.9 MEQ/L (21.0-32.0); MAGNESIUM 2.1 MG/DL (1.5-2.5); POTASSIUM 3.5 MEQ/L (3.5-5.1)
[2017-02-01] MEDS: DOCUSATE SODIUM 50 MG/SENNA 8.6 MG TAB PO SCH ×2 (09:00→19:59)
[2017-02-01] MEDS: SODIUM CHLORIDE 0.9% FLUSH 10 ML FLUSH IV FLUSH SCH ×2 (09:02→19:59)
--- NOTE | 2017-02-01 11:26 | HHI.CCPN ---
Subjective Remarks/Hospital Course 81-year-old male with past medical history of prostate cancer status post radiation, urinary incontinence and intermittent in and out cath who presented to [facility] emergency department via [facility] with 2 day history of urinary discomfort. He states that on 01/29 he developed chills and rigors. He vomited 3. He denies flank pain or hematuria. ED workup demonstrated U/a c/w UTI. WBC is normal but with left shift. He states he was febrile per [facility]. He was normotensive initially with SBP 118/56 MAP 76, arriving at around 18:00 on 01/29. Lactic acid was 2.3. He was given Zosyn and 1 LNS bolus, MIVF and admitted to the floor by hospitalist. At around 23: 00 he developed hypotension and was given an additional 1.5 L bolus. Another 500 mL IV bolus is given but BP is 78/42 with MAP 54. Lactic acid has had a slight uptrend to 2.6. He is on NC. Denies CP or SOB. [place] [facility] [place] He states he has h/o prostate cancer with radiation ~15-20 years ago. Denies prostate surgery. States he had suprapubic cath about 6-7 years ago, was removed about 3-4 years ago. He is followed by Dr. Ivory with [facility] in [facility]. He has urinary incontinence and wears adult diaper. He states he does I/O cath on an as needed basis when he feels symptoms of urinary retention which ends up being approximately once every 2 weeks. He has had recurrent UTI, and therefore states he takes Macrobid for ~5 days starting each time that he does I/O cath. He states he started macrobid about 3-4 days ago which is the last time he did I/O cath. States he has been hospitalized for UTI in the past but last occasion requiring hospitalization was 6-7 years ago in [place]. He is unaware of any history of MDRO. Subjective: 01/31: Afebrile. Levophed discontinued midmorning. Calderon in situ draining clear taisha urine. Some dyspnea noted, aggressive pulmonary pulmonary toileting. IV fluids decreased. 02/01: No acute events overnight. Levophed off 24 hours. Patient tolerating a regular diet. Plan increase mobility up out of bed to chair today. IV fluids discontinued. Patient was noted to have low phosphate levels today which were repleted. Objective Vital Signs Date Time Temp Pulse Resp B/P Pulse Ox O2 Delivery O2 Flow Rate FiO2 02/01/17 09:54 92 Nasal Cannula 2.00 02/01/17 08:00 98.6 57 14 125/73 Intake and Output 01/31/17 01/31/17 02/01/17 08:00 16:00 00:00 Intake Total 1707 ml 2215 ml 1116 ml Output Total 600 ml 445 ml 975 ml Balance 1107 ml 1770 ml 141 ml Result Diagram: 02/01/17 0330 02/01/17 0330 Other Results Microbiology Date/Time Procedure Status Source Growth 01/29/17 18:30 Aerobic Blood Culture - Final Complete Blood Peripheral Klebsiella Pneumoniae 01/29/17 18:30 Anaerobic Blood Culture - Final Complete Klebsiella Pneumoniae 01/29/17 18:40 Aerobic Blood Culture - Final Complete Blood Peripheral Klebsiella Pneumoniae 01/29/17 18:40 Anaerobic Blood Culture - Final Complete Klebsiella Pneumoniae 01/29/17 20:20 Urine Culture - Final Complete Urine Catheterized Urine Klebsiella Pneumoniae Imaging Last Impressions Renal Ultrasound 01/30/17 0000 Signed Impressions: Service Date/Time: Monday, January 30, 2017 07:21 - CONCLUSION: There is no hydronephrosis. Right renal cyst. non Obstructing right renal stone. The kidneys are normal in size. Emmanuel Pulido MD FACR Chest X-Ray 01/30/17 0000 Signed Impressions: Service Date/Time: Monday, January 30, 2017 03:49 - CONCLUSION: 1. Interval placement of left internal jugular central venous line with no pneumothorax aerated 2. Cardiomegaly with increased prominence in the perihilar regions Volodymyr Carroll MD Objective Remarks GENERAL: Elderly male who appears younger than stated age. Hard of hearing but alert and conversant SKIN: Warm and dry. HEAD: Atraumatic. Normocephalic. EYES: Pupils equal and round, 2 mm and reactive bilaterally. No scleral icterus. No injection or drainage. ENT: No nasal bleeding or discharge. Mucous membranes pink and moist. Uvula midline NECK: Trachea midline. No JVD. CARDIOVASCULAR: S1 and S2, regular, sinus rhythm on the monitor. No murmurs rubs or gallops appreciated. RESPIRATORY: Mild tachypnea without accessory muscle use. No wheezes Rales or rhonchi. GASTROINTESTINAL: Abdomen soft, some suprapubic distention just inferior to umbilicus. No tenderness, rebound, guarding. Bowel sounds present. No CVA tenderness. MUSCULOSKELETAL: Extremities without clubbing, cyanosis, or edema. No obvious deformities. NEUROLOGICAL: Awake and alert. No obvious cranial nerve deficits noted hard of hearing. Motor grossly within normal limits. Moves all extremities spontaneously without focal deficit. Normal speech. Urinary Catheter: Yes Assessment to: Continue Calderon insert reason: Obstruction/Retention Vascular Central Line Catheter: Yes Assessment to: Remove Line: Central Venous Catheter Side: Right A/P Assessment and Plan NEURO: Hard of hearing Awake and oriented Hearing aid left ear. Avoid sedative type meds Maintain sleep hygiene RESP: Mild hypoxia-resolved Nasal cannula wean as tolerated. Incentive spirometry every hour awake. Maintain O2 sat greater than 92% Duo nebs PRN CV: Septic shock-resolved Lactic acidemia-resolved Monitor hemodynamics Maintain MAP greater than 65. Discontinue CVP monitoring. Discontinue central line GI: Regular diet Bowel regimen per protocol. Zantac as per below FEN/RENAL/UROLOGY: Urinary incontinence Urinary retention, self cath at home with coude catheter Monitor BMP. Monitor electrolytes and replace as indicated. Avoid nephrotoxins when possible. 01/31 renal ultrasound-right renal cysts, non obstructing right renal stone, no hydronephrosis Urology following, Usha VELIZ, patient known to Dr. Ivory ID: Acute Urinary tract infection, complicated by urinary tract obstruction in the form of bladder distension/ h/o self cath Septic shock Hemodynamic monitoring and resuscitation as per above. Receive Zosyn 4.5 g IV in the emergency department. Will continue Zosyn 3.375 g IV every 6 hours (dosed based on calculated creatinine clearance of 47) Tobramycin 300 mg IV x1 . Risk/benefit d/w patient. Patient denies known history of multidrug resistant organism and last hospitalization was 6-7 years ago. 01/31 Urine culture-Klebsiella pneumoniae 01/31 Blood culture-Klebsiella pneumoniae HEME: No acute hematologic issues. ENDO: Euglycemic Plan PT evaluation and treat -out of bed to chair PROPH: Zantac daily for stress ulcer prophylaxis. Lovenox 40 mg subcutaneous daily for DVT prophylaxis. ACCESS: Left IJ central venous line placed 01/30/17 # 3, to be discontinued. Dispo: Level 2 Discussed with WATER AND FIRE TECHNICIAN, and patient at bedside. Plan transfer to [facility] in .. Physician Beverly Howell MD Feb 01, 2017 11:26
[2017-02-01] MEDS ORDERED: POTASSIUM PHOSPHATE MONOBASIC 500 MG TAB PO ONE (12:00)
--- NOTE | 2017-02-01 16:22 | PD.CONS ---
HPI Service [facility] Consult Requested By Primary Care Physician Arnaldo Canales M.D. Diagnoses: (1) UTI (urinary tract infection) (2) Failure of outpatient treatment (3) Lactic acidosis (4) Dehydration (5) Hypotension Past Family Social History Allergies: Coded Allergies: Codeine (Verified Allergy, Unknown, 01/29/17) Physical Exam Vital Signs Vital Signs Date Time Temp Pulse Resp B/P Pulse Ox O2 Delivery O2 Flow Rate FiO2 02/01/17 14:00 49 02/01/17 12:00 62 02/01/17 12:00 98.7 62 16 128/76 94 02/01/17 10:00 66 02/01/17 09:54 92 Nasal Cannula 2.00 02/01/17 08:00 98.6 57 14 125/73 93 02/01/17 08:00 57 02/01/17 07:00 93 Nasal Cannula 3.00 02/01/17 06:00 48 02/01/17 04:00 46 02/01/17 04:00 98.5 46 16 140/63 93 02/01/17 02:00 45 02/01/17 00:00 98.9 48 18 103/59 93 02/01/17 00:00 48 01/31/17 22:00 61 01/31/17 21:42 96 Nasal Cannula 2.00 01/31/17 20:00 54 01/31/17 20:00 98.7 54 23 113/57 95 01/31/17 19:00 95 Nasal Cannula 3.00 Physical Exam GENERAL: This is a well-nourished, well-developed patient, in no apparent distress. SKIN: No rashes, ecchymoses or lesions. Cool and dry. HEAD: Atraumatic. Normocephalic. No temporal or scalp tenderness. EYES: Pupils equal round and reactive. Extraocular motions intact. No scleral icterus. No injection or drainage. ENT: Nose without bleeding, purulent drainage or septal hematoma. Throat without erythema, tonsillar hypertrophy or exudate. Uvula midline. Airway patent. NECK: Trachea midline. No JVD or lymphadenopathy. Supple, nontender, no meningeal signs. CARDIOVASCULAR: Regular rate and rhythm without murmurs, gallops, or rubs. RESPIRATORY: Clear to auscultation. Breath sounds equal bilaterally. No wheezes , rales, or rhonchi. GASTROINTESTINAL: Abdomen soft, non-tender, nondistended. No hepato-splenomegaly , or palpable masses. No guarding. MUSCULOSKELETAL: Extremities without clubbing, cyanosis, or edema. No joint tenderness, effusion, or edema noted. No calf tenderness. Negative Homans sign bilaterally. NEUROLOGICAL: Awake and alert. Cranial nerves II through XII intact. Motor and sensory grossly within normal limits. Five out of 5 muscle strength in all muscle groups. Normal speech. Laboratory Laboratory Tests Test 02/01/17 03:30 White Blood Count 15.2 Red Blood Count 3.50 Hemoglobin 11.0 Hematocrit 34.5 Mean Corpuscular Volume 98.4 Mean Corpuscular Hemoglobin 31.4 Mean Corpuscular Hemoglobin 32.0 Concent Red Cell Distribution Width 13.0 Platelet Count 152 Mean Platelet Volume 8.9 Sodium Level 144 Potassium Level 3.5 Chloride Level 114 Carbon Dioxide Level 24.9 Anion Gap 5 Blood Urea Nitrogen 11 Creatinine 0.77 Estimat Glomerular Filtration 96 Rate Random Glucose 83 Lactic Acid Level 0.8 Calcium Level 7.7 Phosphorus Level 1.7 Magnesium Level 2.1 Date/Time Procedure Status Source Growth 01/31/17 06:34 Aerobic Blood Culture - Preliminary Resulted Blood Peripheral NO GROWTH IN 1 DAY 01/31/17 06:34 Anaerobic Blood Culture - Preliminary Resulted Blood Peripheral NO GROWTH IN 1 DAY 01/29/17 20:20 Urine Culture - Final Complete Urine Catheterized Urine Klebsiella Pneumoniae 01/29/17 18:40 Aerobic Blood Culture - Final Complete Blood Peripheral Klebsiella Pneumoniae 01/29/17 18:40 Anaerobic Blood Culture - Final Complete Klebsiella Pneumoniae Result Diagram: 02/01/17 0330 02/01/17 0330 Nata CombsP Feb 01, 2017 16:22
[2017-02-01 18:32] LABS: BLOOD GAS BASE EXCESS -7.7 mmol/L (-2-2); BLOOD GAS CARBOXYHEMOGLOBIN 1.2 % (0-4); BLOOD GAS HCO3 17 mmol/L (22-26); BLOOD GAS METHEMOGLOBIN 1.2 % (0-2); BLOOD GAS O2 HGB SATURATION 97 % (90-100); BLOOD GAS OXYGEN CONTENT 19.2 Vol % (12.0-20.0); BLOOD GAS PCO2 33 mmHg (38-42); BLOOD GAS PO2 215 mmHg (61-120); BLOOD GAS TOTAL HGB 13.8 G/DL (12.0-16.0); CRITICAL VALUE NO; TEMP CORR TO 98.6
[2017-02-01 18:33] LABS: DRAW SITE LT RADIAL; FIO2 100 %; NUMBER OF ARTERIAL PUNCTURES 1; STAT YES; ULNAR PULSE PRESENT
[2017-02-02] VITALS (14 sets, daily range): BP systolic 98–117; BP diastolic 53–66; PULSE 43–54; RESP 18–25; TEMP 97.9–99.1; O2SAT 92–99
[2017-02-02] MEDS: PIPERACIL-TAZO 3.375 GM PREMIX 50 ML IV SCH ×4 (04:30→20:48)
[2017-02-02] MEDS: ENOXAPARIN SODIUM 40 MG/0.4 ML SYRINGE SQ SCH (04:30)
[2017-02-02] MEDS: DOCUSATE SODIUM 50 MG/SENNA 8.6 MG TAB PO SCH ×2 (09:00→20:48)
[2017-02-02] MEDS: SODIUM CHLORIDE 0.9% FLUSH 10 ML FLUSH IV FLUSH SCH ×2 (09:23→20:48)
--- NOTE | 2017-02-02 15:54 | HHI.PR ---
Subjective Remarks The patient was feeling well and wanted to know when he can go home. Family was at bedside and their questions were answered. The patient was concerned that he had swelling in his right arm. He says he tends to get short of breath , especially with ambulation. He says he has been straight cathetering for years and has had UTIs about once a month. Discussed with nursing. Objective Vitals Vital Signs Date Time Temp Pulse Resp B/P Pulse Ox O2 Delivery O2 Flow Rate FiO2 02/02/17 13:30 97.9 51 20 98/54 96 02/02/17 12:00 51 02/02/17 12:00 99.0 51 22 117/59 95 02/02/17 10:00 54 02/02/17 08:25 94 Nasal Cannula 4.00 02/02/17 08:00 99.1 44 18 107/66 95 02/02/17 08:00 44 02/02/17 07:00 96 Nasal Cannula 4.00 02/02/17 06:03 94 Nasal Cannula 4.00 02/02/17 06:00 94 Nasal Cannula 4.00 02/02/17 06:00 46 02/02/17 04:00 43 02/02/17 04:00 98.4 43 25 116/56 99 02/02/17 02:00 45 02/02/17 00:00 98.8 49 25 116/55 98 02/02/17 00:00 49 02/01/17 22:00 52 02/01/17 20:17 100 Partial Rebreather 15.00 02/01/17 20:00 85 02/01/17 20:00 98.5 73 30 118/57 96 02/01/17 19:00 98 Partial Non-Rebreather 02/01/17 18:00 62 02/01/17 16:00 98.6 62 20 130/92 96 02/01/17 16:00 62 I/O 02/01/17 02/01/17 02/01/17 02/02/17 02/02/17 02/02/17 07:00 15:00 23:00 07:00 15:00 23:00 Intake Total 354 ml 90 ml 165 ml 177 ml Output Total 725 ml 700 ml 400 ml 250 ml Balance -371 ml -610 ml -235 ml -73 ml Intake Oral 100 ml 50 ml IV Total 354 ml 90 ml 65 ml 127 ml Output Urine Total 725 ml 700 ml 400 ml 250 ml # Bowel Movements 1 0 2 0 Result Diagram: 02/01/17 0330 02/01/17 0330 Imaging Last Impressions Renal Ultrasound 01/30/17 0000 Signed Impressions: Service Date/Time: Monday, January 30, 2017 07:21 - CONCLUSION: There is no hydronephrosis. Right renal cyst. non Obstructing right renal stone. The kidneys are normal in size. Emmanuel Pulido MD FACR Chest X-Ray 01/30/17 0000 Signed Impressions: Service Date/Time: Monday, January 30, 2017 03:49 - CONCLUSION: 1. Interval placement of left internal jugular central venous line with no pneumothorax aerated 2. Cardiomegaly with increased prominence in the perihilar regions Volodymyr Carroll MD Objective Remarks GENERAL: Resting comfortably, in no apparent distress. SKIN: Warm and dry. HEAD: Atraumatic. Normocephalic. EYES: Pupils equal and round, 2 mm and reactive bilaterally. No scleral icterus. No injection or drainage. ENT: No nasal bleeding or discharge. Mucous membranes pink and moist. Uvula midline NECK: Trachea midline. No JVD. CARDIOVASCULAR: S1 and S2, regular, sinus rhythm on the monitor. No murmurs rubs or gallops appreciated. RESPIRATORY: Clear to auscultation bilaterally. No wheezes Rales or rhonchi. GASTROINTESTINAL: Abdomen soft. No tenderness, rebound, guarding. Bowel sounds present. No CVA tenderness. MUSCULOSKELETAL: Lower extremities without clubbing, cyanosis, or edema. No obvious deformities. Right upper extremity with slight edema. NEUROLOGICAL: Awake and alert. No obvious cranial nerve deficits noted hard of hearing. Motor grossly within normal limits. Moves all extremities spontaneously without focal deficit. PSYCH: Mood and affect appropriate. Medications and IVs Current Medications Medications (Trade) Dose Ordered Sig/Sushma Route Start Time Stop Time Status Last Admin (NS Flush) 2 ml UNSCH PRN IV FLUSH 01/29/17 21:30 (NS Flush) 2 ml BID IV FLUSH 01/30/17 09:00 02/02/17 09:23 (Zofran Inj) 4 mg Q6H PRN IVP 01/29/17 21:30 02/01/17 19:04 (Tylenol) 650 mg Q6H PRN PO 01/29/17 21:30 01/31/17 22:16 (Morphine Inj) 2 mg Q3H PRN IV 01/29/17 21:30 (Micaela-Colace) 1 tab BID PO 01/30/17 09:00 01/31/17 19:54 (Milk Of Magnesia Liq) 30 ml Q12H PRN PO 01/29/17 21:30 (Senokot) 17.2 mg Q12H PRN PO 01/29/17 21:30 (Dulcolax Supp) 10 mg DAILY PRN RECTAL 01/29/17 21:30 (Lactulose Liq) 30 ml DAILY PRN PO 01/29/17 21:30 Terbutaline Sulfate 1 mg 1 mg UNSCH PRN SQ 01/30/17 03:00 (Zosyn 3.375 Gm Premix) 50 ml @ 100 mls/hr Q6H IV 01/30/17 04:00 02/02/17 09:22 (Lovenox Inj) 40 mg Q24H SQ 01/30/17 04:00 02/02/17 04:30 Line: Central Venous Catheter Side: Right A/P Problem List: (1) UTI (urinary tract infection) ICD Code: N39.0 Status: Acute (2) Failure of outpatient treatment ICD Code: Z78.9 Status: Acute (3) Lactic acidosis ICD Code: E87.2 Status: Acute (4) Dehydration ICD Code: E86.0 Status: Acute (5) Hypotension ICD Code: I95.9 Status: Acute Assessment and Plan Acute urinary tract infection/ Septic shock Secondary to self catheterization. Complicated by urinary tract obstruction in the form of bladder distension. 01/31 urine culture-Klebsiella pneumoniae; 01/31 Blood culture-Klebsiella pneumoniae. - Will continue Zosyn 3.375 g IV every 6 hours. - follow repeat blood cultures. NGTD. - PT. Acute hypoxemic respiratory failure Unsure of etiology. Chest x-ray unremarkable. No wheezing on exam. - Nasal cannula, wean as tolerated. - Incentive spirometry every hour awake. - Duo nebs PRN. - Check a BNP. - Repeat chest x-ray in the morning. Urinary incontinence Urinary retention, self cath at home with coude catheter. 01/31 renal ultrasound- right renal cysts, non obstructing right renal stone, no hydronephrosis. Urology following, Usha VELIZ, patient known to Dr. Ivory. - Monitor BMP. Monitor electrolytes and replace as indicated. - Avoid nephrotoxins when possible. - Continue Calderon catheter until urology outpatient follow-up. Right upper extremity edema The patient complains of swelling in the right upper extremity. - Ultrasound pending. Bradycardia Unsure of baseline heart rate. - Check an EKG. - Monitor on telemetry. PPx: Lovenox Discharge Planning Anticipate discharge home in 1-2 days if respiratory status improves. Volodymyr Yates DO Feb 02, 2017 15:54
[2017-02-02] MEDS: RESP: ALBUTEROL 2.5 MG/IPRATROPIUM 0.5 MG NEB (SCH) NEB ×2 (16:51→20:41)
[2017-02-02 19:27] LABS: BICARBONATE 19.8 MEQ/L (21.0-32.0); POTASSIUM 3.3 MEQ/L (3.5-5.1)
[2017-02-03] VITALS (10 sets, daily range): BP systolic 119–139; BP diastolic 56–77; PULSE 52–95; RESP 16–20; TEMP 97.2–98.8; O2SAT 91–95
--- NOTE | 2017-02-03 01:00 | RADRPT ---
EXAM DATE/TIME: 02/03/2017 00:28 [facility] COMPARISON: No previous studies available for comparison. INDICATIONS : Right arm swelling. MEDICAL HISTORY : Prostate cancer. Radiation therapy. Sepsis. UTIs. Incontinence. SURGICAL HISTORY : Cholecystectomy. Suprapubic catheter. ENCOUNTER: Initial ACUITY: 3 days PAIN SCORE: 0/10 LOCATION: Right arm. FINDINGS: There is spontaneous flow documented in the brachial, basilic, cephalic, axillary, and subclavian vei ns. The vessels are compressible and augmentation response is documented. No filling defects are se en. The flow is phasic with respiration. Direction of flow in the jugular vein is caudal. CONCLUSION: Normal examination. Javad Rosales MD on February 03, 2017 at 0:59 Board Certified Radiologist. This report was verified electronically.
[2017-02-03] MEDS: PIPERACIL-TAZO 3.375 GM PREMIX 50 ML IV SCH ×4 (05:11→21:10)
[2017-02-03] MEDS: ENOXAPARIN SODIUM 40 MG/0.4 ML SYRINGE SQ SCH (05:11)
--- NOTE | 2017-02-03 06:24 | RADRPT ---
EXAM DATE/TIME: 02/03/2017 05:00 [facility] COMPARISON: CHEST SINGLE AP, January 30, 2017, 3:49. INDICATIONS : Shortness of breath, difficulty breathing MEDICAL HISTORY : None. SURGICAL HISTORY : None. ENCOUNTER: Subsequent ACUITY: 1 week PAIN SCORE: 0/10 LOCATION: Bilateral chest FINDINGS: Previously seen left IJ central line has been removed. There is question of mild degree of pulmonary venous congestion. Focal consolidation is not seen. The rest of the examination has not significantly changed. CONCLUSION: Possible mild case of pulmonary venous congestion. Javad Rosales MD on February 03, 2017 at 6:22 Board Certified Radiologist. This report was verified electronically.
[2017-02-03] MEDS: RESP: ALBUTEROL 2.5 MG/IPRATROPIUM 0.5 MG NEB (SCH) NEB ×3 (07:47→20:41)
[2017-02-03 08:30] LABS: HEMATOCRIT 35.5 % (39.0-51.0); MEAN CELL VOLUME 97.7 FL (80.0-100.0); MEAN CORPUSCULAR HEMOGLOBIN 31.4 PG (27.0-34.0); MEAN CORPUSCULAR HGB CONC 32.2 % (32.0-36.0); PLATELET COUNT 198 TH/MM3 (150-450); RED BLOOD COUNT 3.64 MIL/MM3 (4.50-5.90); RED CELL DISTRIBUTION WIDTH 12.8 % (11.6-17.2); REVIEW FLAG FINAL; WHITE BLOOD COUNT 12.1 TH/MM3 (4.0-11.0)
[2017-02-03] MEDS: SODIUM CHLORIDE 0.9% FLUSH 10 ML FLUSH IV FLUSH SCH ×2 (08:36→21:10)
[2017-02-03] MEDS: DOCUSATE SODIUM 50 MG/SENNA 8.6 MG TAB PO SCH ×2 (08:36→21:00)
[2017-02-03 09:01] LABS: BICARBONATE 21.9 MEQ/L (21.0-32.0); POTASSIUM 3.2 MEQ/L (3.5-5.1)
[2017-02-03] MEDS ORDERED: FUROSEMIDE 40 MG/4 ML VIAL IV PUSH ONE (11:00)
[2017-02-03] MEDS: POTASSIUM CHLORIDE 20 MEQ CONTROLLED RELEASE TAB PO SCH ×2 (11:26→17:48)
--- NOTE | 2017-02-03 11:48 | HHI.PR ---
Subjective Remarks The patient complained of bladder spasms overnight. He also described shortness of breath. He said he had rheumatic fever as a child when asked about heart conditions. No other acute complaints. Objective Vitals Vital Signs Date Time Temp Pulse Resp B/P Pulse Ox O2 Delivery O2 Flow Rate FiO2 02/03/17 08:10 76 02/03/17 08:10 Nasal Cannula 3.00 02/03/17 08:00 98.1 75 18 135/65 94 02/03/17 07:49 95 Nasal Cannula 3.00 02/03/17 04:00 Nasal Cannula 3.00 02/03/17 04:00 98.1 95 20 131/77 93 02/03/17 00:00 Nasal Cannula 3.00 02/03/17 00:00 97.2 52 18 119/56 91 02/02/17 20:42 95 Nasal Cannula 3.00 02/02/17 20:27 54 02/02/17 20:00 98.2 53 20 114/56 94 02/02/17 20:00 Nasal Cannula 3.00 02/02/17 16:00 Nasal Cannula 3.00 02/02/17 16:00 97.9 51 20 113/53 92 02/02/17 13:30 97.9 51 20 98/54 96 02/02/17 12:00 51 02/02/17 12:00 99.0 51 22 117/59 95 I/O 02/02/17 02/02/17 02/02/17 02/03/17 02/03/17 02/03/17 07:00 15:00 23:00 07:00 15:00 23:00 Intake Total 177 ml 50 ml 50 ml Output Total 250 ml 1000 ml Balance -73 ml 50 ml -950 ml Intake Oral 50 ml IV Total 127 ml 50 ml 50 ml Output Urine Total 250 ml 1000 ml # Bowel Movements 0 Result Diagram: 02/03/17 0739 02/03/17 0739 Imaging Last Impressions Chest X-Ray 02/03/17 0600 Signed Impressions: Service Date/Time: January 05:00 - CONCLUSION: Possible mild case of pulmonary venous congestion. Javad Rosales MD Upper Extremity Ultrasound 02/02/17 0000 Signed Impressions: Service Date/Time: January 00:28 - CONCLUSION: Normal examination. Javad Rosales MD Renal Ultrasound 01/30/17 0000 Signed Impressions: Service Date/Time: Monday, January 30, 2017 07:21 - CONCLUSION: There is no hydronephrosis. Right renal cyst. non Obstructing right renal stone. The kidneys are normal in size. Emmanuel Pulido MD FACR Objective Remarks GENERAL: Resting comfortably, in no apparent distress. SKIN: Warm and dry. HEAD: Atraumatic. Normocephalic. EYES: Pupils equal and round, 2 mm and reactive bilaterally. No scleral icterus. No injection or drainage. ENT: No nasal bleeding or discharge. Mucous membranes pink and moist. Uvula midline NECK: Trachea midline. No JVD. CARDIOVASCULAR: S1 and S2, regular, sinus rhythm on the monitor. No murmurs rubs or gallops appreciated. RESPIRATORY: Crackles at the bases. GASTROINTESTINAL: Abdomen soft. No tenderness, rebound, guarding. Bowel sounds present. No CVA tenderness. MUSCULOSKELETAL: Lower extremities without clubbing, cyanosis, or edema. No obvious deformities. Right upper extremity with slight edema. NEUROLOGICAL: Awake and alert. No obvious cranial nerve deficits noted hard of hearing. Motor grossly within normal limits. Moves all extremities spontaneously without focal deficit. PSYCH: Mood and affect appropriate. Medications and IVs Current Medications Medications (Trade) Dose Ordered Sig/Sushma Route Start Time Stop Time Status Last Admin (NS Flush) 2 ml UNSCH PRN IV FLUSH 01/29/17 21:30 (NS Flush) 2 ml BID IV FLUSH 01/30/17 09:00 02/03/17 08:36 (Zofran Inj) 4 mg Q6H PRN IVP 01/29/17 21:30 02/01/17 19:04 (Tylenol) 650 mg Q6H PRN PO 01/29/17 21:30 01/31/17 22:16 (Morphine Inj) 2 mg Q3H PRN IV 01/29/17 21:30 (Micaela-Colace) 1 tab BID PO 01/30/17 09:00 01/31/17 19:54 (Milk Of Magnesia Liq) 30 ml Q12H PRN PO 01/29/17 21:30 (Senokot) 17.2 mg Q12H PRN PO 01/29/17 21:30 (Dulcolax Supp) 10 mg DAILY PRN RECTAL 01/29/17 21:30 (Lactulose Liq) 30 ml DAILY PRN PO 01/29/17 21:30 Terbutaline Sulfate 1 mg 1 mg UNSCH PRN SQ 01/30/17 03:00 (Zosyn 3.375 Gm Premix) 50 ml @ 100 mls/hr Q6H IV 01/30/17 04:00 02/03/17 08:36 (Lovenox Inj) 40 mg Q24H SQ 01/30/17 04:00 02/03/17 05:11 (KCl) 40 meq Q4H PO 02/03/17 11:00 02/03/17 15:01 02/03/17 11:26 Line: Central Venous Catheter Side: Right A/P Problem List: (1) UTI (urinary tract infection) ICD Code: N39.0 Status: Acute (2) Failure of outpatient treatment ICD Code: Z78.9 Status: Acute (3) Lactic acidosis ICD Code: E87.2 Status: Acute (4) Dehydration ICD Code: E86.0 Status: Acute (5) Hypotension ICD Code: I95.9 Status: Acute Assessment and Plan Acute urinary tract infection/ Septic shock Secondary to self catheterization. Complicated by urinary tract obstruction in the form of bladder distension. 01/31 urine culture-Klebsiella pneumoniae; 01/31 Blood culture-Klebsiella pneumoniae. - Will continue Zosyn 3.375 g IV every 6 hours, likely will need a a 14 day course of antibiotics. - follow repeat blood cultures. NGTD. - PT. Acute hypoxemic respiratory failure Unsure of etiology. Chest x-ray with mild pulmonary congestion. Crackles at the bases and mild wheezing appreciated. BNP elevated over 400. He does have a history of rheumatic fever as a child so valvular dysfunction is a possibility. - Nasal cannula, wean as tolerated. - Incentive spirometry every hour awake. - Duo nebs PRN. - echo pending. - Lasix 40 mg IV x 1 and follow output. Urinary incontinence Urinary retention, self cath at home with coude catheter. 01/31 renal ultrasound- right renal cysts, non obstructing right renal stone, no hydronephrosis. Urology following, Usha VELIZ, patient known to Dr. Ivory. - Monitor BMP. Monitor electrolytes and replace as indicated. - Avoid nephrotoxins when possible. - Continue Calderon catheter until urology outpatient follow-up. - start Flomax to treat bladder spasms. Right upper extremity edema The patient complains of swelling in the right upper extremity. Ultrasound negative. - keep arm elevated. Bradycardia Unsure of baseline heart rate. EKG with concern for Mobitz Type 2. - follow EKG. - Monitor on telemetry. - cardiology eval requested. PPx: Lovenox Discharge Planning Awaiting cardiac eval Volodymyr Yates DO Feb 03, 2017 11:48
[2017-02-03] MEDS: TAMSULOSIN HCL 0.4 MG CAP PO SCH (12:17)
--- NOTE | 2017-02-03 17:56 | EKG ---
Date Performed: 02/02/2017 Time Performed: 19:03:22 PTAGE: 81 years EKG: Sinus Bradycardia with premature atrial contractions. ABNORMAL ECG NO PREVIOUS TRACING DOCTOR: David Pal Interpretating Date/Time 02/03/2017 17:54:49
--- NOTE | 2017-02-03 17:59 | MB ---
cc: CHEL SULLIVAN DATE OF CONSULTATION 02/03/17 REASON FOR CONSULTATION Evaluation of CHF and bradycardia HISTORY OF PRESENT ILLNESS Jase Lopez is an 81-year-old man who previously saw my colleague, Dr. Byrd, in April. He came in with urosepsis due to Klebsiella and is initially septic and aggressively hydrated. He apparently complained of shortness of breath today and has had mild bradycardia on the monitor. He got IV Lasix about an hour ago. I really cannot tell any improvement so far. He was admitted a few days ago with urosepsis with Klebsiella growing in his cultures. He denies any anginal pain. He had rheumatic fever at age [age] but no mention of cardiac involvement. He has had a prior echo and I have not got that tracked down yet. On telemetry, he has had sinus rhythm in the 50s and some mention of heart rates in the 40s. He has had no syncope or presyncope. He does not have any anginal symptoms. Denies cardiac history. PAST MEDICAL HISTORY 1. PACs documented in the past 2. Glaucoma, 3. Hyperlipidemia, 4. Prostate cancer PAST SURGICAL HISTORY 1. Cholecystectomy 2. Suprapubic urinary catheter in the past. MEDICATIONS Currently on 1. Lovenox 40 mg once a day 2. One dose of Lasix 3. 40 of potassium p.o. x2 and his potassium level is 3.2. 4. Flomax. Nebulizer therapy is ordered. ALLERGIES CODEINE FAMILY HISTORY Positive for emphysema in his father. SOCIAL HISTORY Smoked from age 14 to age 32, does not smoke now. Was in the [employer] four years. REVIEW OF SYSTEMS Noncontributory. PHYSICAL EXAMINATION GENERAL: A somewhat older gentleman well-developed, well-nourished in no acute distress. VITAL SIGNS: Charted. HEENT: Exam unremarkable. NECK: No JVD, no bruits. CHEST: Shows a few crackles left base. CARDIAC: S1-S2 regular rate and rhythm. No murmurs, gallops. ABDOMEN: Soft, nontender. No masses or organomegaly. EXTREMITIES: No clubbing, cyanosis or edema. CARDIOLOGY STUDIES EKG showed sinus bradycardia with PACs, similar to his old tracing. LABORATORY DATA Hematocrit 35.5, white count is mildly elevated. BNP yesterday was 442. IMPRESSION 1. Mild sinus bradycardia with occasional PVCs. This does not appear to be causing any acute problem. 2. CHF, suspect this is acute diastolic CHF from hydration but we will need to check LV function by echo which is already ordered. He has received IV Lasix and is getting his potassium repleted. Further therapy to be determined. MD FELICIANO Montoya/ /1:14 PM /5:43 PM
--- NOTE | 2017-02-03 18:06 | ECHRPT ---
Indication: Heart failure, unspecified CONCLUSIONS Normal left ventricular size. The left ventricular systolic function is normal with an estimated ejection fraction in the range of 55-60%. Trace mitral valve regurgitation. There is trace tricuspid valve regurgitation. IVC 2.2 BP: 135 / 65 HR: 76 Rhythm: MEASUREMENTS (Male / Female) Normal Values Technical Quality:Good 2D ECHO LV Diastolic Diameter PLAX 4.2 cm 4.2 - 5.9 / 3.9 - 5.3 cm LV Systolic Diameter PLAX 3.2 cm IVS Diastolic Thickness 1.2 cm 0.6 - 1.0 / 0.6 - 0.9 cm LVPW Diastolic Thickness 0.8 cm 0.6 - 1.0 / 0.6 - 0.9 cm LV Relative Wall Thickness 0.5 RV Internal Dim ED PLAX 3.1 cm M-MODE Aortic Root Diameter MM 2.8 cm LA Systolic Diameter MM 3.9 cm LA Ao Ratio MM 1.4 DOPPLER Mitral E Point Velocity 80.9 cm/s Mitral A Point Velocity 70.1 cm/s Mitral E to A Ratio 1.2 LV E' Lateral Velocity 9.7 cm/s Mitral E to LV E' Lateral Ratio 8.4 LV E' Septal Velocity 8.2 cm/s Mitral E to LV E' Septal Ratio 9.9 TR Peak Velocity 312.0 cm/s TR Peak Gradient 39.0 mmHg FINDINGS LEFT VENTRICLE Normal left ventricular size. The left ventricular systolic function is normal with an estimated ejection fraction in the range of 55-60%. RIGHT VENTRICLE Normal right ventricular size and systolic function. LEFT ATRIUM The left atrial size is normal. RIGHT ATRIUM The right atrial size is normal. ATRIAL SEPTUM Normal atrial septal thickness without atrial level shunting by limited color doppler interrogation. AORTA The aortic root and proximal ascending aorta are normal in size on limited imaging. MITRAL VALVE Structurally normal mitral valve. Trace mitral valve regurgitation. AORTIC VALVE Trileaflet aortic valve. No aortic valve stenosis or regurgitation. TRICUSPID VALVE Structurally normal tricuspid valve. There is trace tricuspid valve regurgitation. PULMONARY VALVE The pulmonary valve is not well visualized. VESSELS IVC 2.2 PERICARDIUM No pericardial effusion. Lorenzo Ortega MD (Electronically Signed) Final Date:03 February 2017 18:05
[2017-02-04] VITALS (10 sets, daily range): BP systolic 114–141; BP diastolic 58–67; PULSE 70–95; RESP 16–20; TEMP 97.8–99.2; O2SAT 92–99
[2017-02-04] MEDS: PIPERACIL-TAZO 3.375 GM PREMIX 50 ML IV SCH ×2 (04:26→08:34)
[2017-02-04] MEDS: ENOXAPARIN SODIUM 40 MG/0.4 ML SYRINGE SQ SCH (04:27)
[2017-02-04] MEDS: TAMSULOSIN HCL 0.4 MG CAP PO SCH (08:34)
[2017-02-04] MEDS: DOCUSATE SODIUM 50 MG/SENNA 8.6 MG TAB PO SCH (08:34)
[2017-02-04] MEDS: SODIUM CHLORIDE 0.9% FLUSH 10 ML FLUSH IV FLUSH SCH ×2 (08:36→21:27)
[2017-02-04] MEDS: RESP: ALBUTEROL 2.5 MG/IPRATROPIUM 0.5 MG NEB (SCH) NEB ×3 (08:45→20:13)
[2017-02-04] MEDS ORDERED: MAGNESIUM SULFATE 1 GM PREMIX 100 ML IV PRN (08:45)
--- NOTE | 2017-02-04 08:53 | PD.CARD.PN ---
Subjective Subjective Remarks no complaints Objective Medications Current Medications Medications (Trade) Dose Ordered Sig/Sushma Route Start Time Stop Time Status Last Admin (NS Flush) 2 ml UNSCH PRN IV FLUSH 01/29/17 21:30 (NS Flush) 2 ml BID IV FLUSH 01/30/17 09:00 02/04/17 08:36 (Zofran Inj) 4 mg Q6H PRN IVP 01/29/17 21:30 02/01/17 19:04 (Tylenol) 650 mg Q6H PRN PO 01/29/17 21:30 01/31/17 22:16 (Morphine Inj) 2 mg Q3H PRN IV 01/29/17 21:30 (Micaela-Colace) 1 tab BID PO 01/30/17 09:00 01/31/17 19:54 (Milk Of Magnesia Liq) 30 ml Q12H PRN PO 01/29/17 21:30 (Senokot) 17.2 mg Q12H PRN PO 01/29/17 21:30 (Dulcolax Supp) 10 mg DAILY PRN RECTAL 01/29/17 21:30 (Lactulose Liq) 30 ml DAILY PRN PO 01/29/17 21:30 Terbutaline Sulfate 1 mg 1 mg UNSCH PRN SQ 01/30/17 03:00 (Zosyn 3.375 Gm Premix) 50 ml @ 100 mls/hr Q6H IV 01/30/17 04:00 02/04/17 08:34 (Lovenox Inj) 40 mg Q24H SQ 01/30/17 04:00 02/04/17 04:27 (Flomax) 0.4 mg DAILY PO 02/03/17 12:00 02/04/17 08:34 Potassium Chloride 40 meq 40 meq Q8H PO 02/04/17 08:30 02/04/17 18:00 (Magnesium Sulfate 1 Gm Premix) 100 ml @ 100 mls/hr ONCE PRN IV 02/04/17 08:45 02/05/17 08:44 (KCl) 40 meq ONCE PRN PO 02/05/17 04:00 02/05/17 04:01 Vital Signs / I&O Vital Signs Date Time Temp Pulse Resp B/P Pulse Ox O2 Delivery O2 Flow Rate FiO2 02/04/17 04:00 99.1 95 18 141/67 95 02/04/17 00:00 98.8 75 16 123/58 93 02/03/17 20:41 93 Nasal Cannula 3.00 02/03/17 20:00 Nasal Cannula 3.00 02/03/17 20:00 98.1 75 16 124/58 93 02/03/17 19:35 75 02/03/17 16:00 98.8 53 18 126/70 93 02/03/17 12:00 98.6 64 18 139/59 94 I/O 02/03/17 02/03/17 02/03/17 02/04/17 02/04/17 02/04/17 07:00 15:00 23:00 07:00 15:00 23:00 Intake Total 50 ml 480 ml 240 ml 340 ml Output Total 1000 ml 4100 ml 1350 ml 1200 ml Balance -950 ml -3620 ml -1110 ml -860 ml Intake Oral 480 ml 240 ml 240 ml IV Total 50 ml 100 ml Output Urine Total 1000 ml 4100 ml 1350 ml 1200 ml # Bowel Movements 0 0 0 Physical Exam Alert Chest clear CV S1S2 RRR No edema Laboratory Laboratory Tests Test 01/31/17 02/01/17 02/01/17 02/02/17 14:15 03:30 18:15 18:43 Neutrophils (%) (Auto) 86.4 % Lymphocytes (%) (Auto) 7.8 % Monocytes (%) (Auto) 4.8 % Eosinophils (%) (Auto) 0.8 % Basophils (%) (Auto) 0.2 % Neutrophils # (Auto) 16.4 TH/MM3 Lymphocytes # (Auto) 1.5 TH/MM3 Monocytes # (Auto) 0.9 TH/MM3 Eosinophils # (Auto) 0.1 TH/MM3 Basophils # (Auto) 0.0 TH/MM3 CBC Comment DIFF FINAL Differential Comment Protein Corrected Calcium 8.1 MG/DL Total Protein 5.4 GM/DL Lactic Acid Level 0.8 mmol/L Blood Gas Puncture Site LT RADIAL Blood Gas Patient Temperature 98.6 Blood Gas HCO3 17 mmol/L Blood Gas Base Excess -7.7 mmol/L Blood Gas Oxygen Saturation 97 % Arterial Blood pH 7.33 Arterial Blood Partial 33 mmHg Pressure CO2 Arterial Blood Partial 215 mmHg Pressure O2 Arterial Blood Oxygen Content 19.2 Vol % Arterial Blood 1.2 % Carboxyhemoglobin Arterial Blood Methemoglobin 1.2 % Blood Gas Hemoglobin 13.8 G/DL Oxygen Delivery Device Non-Rebreathing Mask Blood Gas Inspired Oxygen 100 % Phosphorus Level 2.0 MG/DL B-Type Natriuretic Peptide 442 PG/ML Test 02/03/17 07:39 White Blood Count 12.1 TH/MM3 Red Blood Count 3.64 MIL/MM3 Hemoglobin 11.4 GM/DL Hematocrit 35.5 % Mean Corpuscular Volume 97.7 FL Mean Corpuscular Hemoglobin 31.4 PG Mean Corpuscular Hemoglobin 32.2 % Concent Red Cell Distribution Width 12.8 % Platelet Count 198 TH/MM3 Mean Platelet Volume 9.1 FL Sodium Level 141 MEQ/L Potassium Level 3.2 MEQ/L Chloride Level 109 MEQ/L Carbon Dioxide Level 21.9 MEQ/L Anion Gap 10 MEQ/L Blood Urea Nitrogen 10 MG/DL Creatinine 0.77 MG/DL Estimat Glomerular Filtration 96 ML/MIN Rate Random Glucose 91 MG/DL Calcium Level 8.1 MG/DL Magnesium Level 2.0 MG/DL Imaging Last 48 hours Impressions Chest X-Ray 02/03/17 0600 Signed Impressions: Service Date/Time: January 05:00 - CONCLUSION: Possible mild case of pulmonary venous congestion. Javad Rosales MD Assessment and Plan Problem List: (1) Hypokalemia Assessment and Plan: Repletion ordered (2) Acute diastolic (congestive) heart failure Assessment and Plan: Clinically resolved (3) Bradycardia Assessment and Plan: Mild Assessment and Plan I will see prn. Please call if questions Lorenzo Ortega MD Feb 04, 2017 08:53
[2017-02-04] MEDS: POTASSIUM CHLORIDE 20 MEQ CONTROLLED RELEASE TAB PO SCH ×2 (09:05→17:38)
[2017-02-04 09:06] LABS: BICARBONATE 28.4 MEQ/L (21.0-32.0); MAGNESIUM 1.9 MG/DL (1.5-2.5); POTASSIUM 3.3 MEQ/L (3.5-5.1)
--- NOTE | 2017-02-04 15:08 | HHI.PR ---
Subjective Remarks The pt said his bladder spasms were better. He said he has been having frequent loose bowel movements and that the stool has looked black. Otherwise no acute complaints. Objective Vitals Vital Signs Date Time Temp Pulse Resp B/P Pulse Ox O2 Delivery O2 Flow Rate FiO2 02/04/17 12:00 97.8 81 20 114/58 96 02/04/17 09:17 99 02/04/17 08:50 99 21 02/04/17 08:10 73 02/04/17 08:10 Room Air 02/04/17 08:00 98.0 70 20 126/63 94 02/04/17 04:00 99.1 95 18 141/67 95 02/04/17 00:00 98.8 75 16 123/58 93 02/03/17 20:41 93 Nasal Cannula 3.00 02/03/17 20:00 Nasal Cannula 3.00 02/03/17 20:00 98.1 75 16 124/58 93 02/03/17 19:35 75 02/03/17 16:00 98.8 53 18 126/70 93 I/O 02/03/17 02/03/17 02/03/17 02/04/17 02/04/17 02/04/17 06:59 14:59 22:59 06:59 14:59 22:59 Intake Total 50 ml 480 ml 240 ml 340 ml Output Total 1000 ml 4100 ml 1350 ml 1200 ml Balance -950 ml -3620 ml -1110 ml -860 ml Intake Oral 480 ml 240 ml 240 ml IV Total 50 ml 100 ml Output Urine Total 1000 ml 4100 ml 1350 ml 1200 ml # Bowel Movements 0 0 0 Result Diagram: 02/03/17 0739 02/04/17 0637 Imaging Last Impressions Chest X-Ray 02/03/17 0600 Signed Impressions: Service Date/Time: January 05:00 - CONCLUSION: Possible mild case of pulmonary venous congestion. Javad Rosales MD Upper Extremity Ultrasound 02/02/17 0000 Signed Impressions: Service Date/Time: January 00:28 - CONCLUSION: Normal examination. Javad Rosales MD Renal Ultrasound 01/30/17 0000 Signed Impressions: Service Date/Time: Monday, January 30, 2017 07:21 - CONCLUSION: There is no hydronephrosis. Right renal cyst. non Obstructing right renal stone. The kidneys are normal in size. Emmanuel Pulido MD FACR Objective Remarks GENERAL: Resting comfortably, in no apparent distress. SKIN: Warm and dry. HEAD: Atraumatic. Normocephalic. EYES: Pupils equal and round, 2 mm and reactive bilaterally. No scleral icterus. No injection or drainage. ENT: No nasal bleeding or discharge. Mucous membranes pink and moist. Uvula midline NECK: Trachea midline. No JVD. CARDIOVASCULAR: S1 and S2, regular, sinus rhythm on the monitor. No murmurs rubs or gallops appreciated. RESPIRATORY: Clear to auscultation. GASTROINTESTINAL: Abdomen soft. No tenderness, rebound, guarding. Bowel sounds present. No CVA tenderness. MUSCULOSKELETAL: Lower extremities without clubbing, cyanosis, or edema. No obvious deformities. Right upper extremity with slight edema. NEUROLOGICAL: Awake and alert. No obvious cranial nerve deficits noted hard of hearing. Motor grossly within normal limits. Moves all extremities spontaneously without focal deficit. PSYCH: Mood and affect appropriate. Medications and IVs Current Medications Medications (Trade) Dose Ordered Sig/Sushma Route Start Time Stop Time Status Last Admin (NS Flush) 2 ml UNSCH PRN IV FLUSH 01/29/17 21:30 (NS Flush) 2 ml BID IV FLUSH 01/30/17 09:00 02/04/17 08:36 (Zofran Inj) 4 mg Q6H PRN IVP 01/29/17 21:30 02/01/17 19:04 (Tylenol) 650 mg Q6H PRN PO 01/29/17 21:30 01/31/17 22:16 (Morphine Inj) 2 mg Q3H PRN IV 01/29/17 21:30 (Milk Of Magnesia Liq) 30 ml Q12H PRN PO 01/29/17 21:30 (Senokot) 17.2 mg Q12H PRN PO 01/29/17 21:30 (Dulcolax Supp) 10 mg DAILY PRN RECTAL 01/29/17 21:30 (Lactulose Liq) 30 ml DAILY PRN PO 01/29/17 21:30 (Brethine Inj) 1 mg UNSCH PRN SQ 01/30/17 03:00 (Lovenox Inj) 40 mg Q24H SQ 01/30/17 04:00 02/04/17 04:27 (Flomax) 0.4 mg DAILY PO 02/03/17 12:00 02/04/17 08:34 Potassium Chloride 40 meq 40 meq Q8H PO 02/04/17 08:30 02/04/17 18:00 02/04/17 09:05 (Magnesium Sulfate 1 Gm Premix) 100 ml @ 100 mls/hr ONCE PRN IV 02/04/17 08:45 02/05/17 08:44 Potassium Chloride 40 meq 40 meq ONCE PRN PO 02/05/17 04:00 02/05/17 04:01 (Zosyn 4.5 Gm Premix) 100 ml @ 200 mls/hr Q6H IV 02/04/17 15:00 UNV Line: Central Venous Catheter Side: Right A/P Problem List: (1) UTI (urinary tract infection) ICD Code: N39.0 Status: Acute (2) Failure of outpatient treatment ICD Code: Z78.9 Status: Acute (3) Lactic acidosis ICD Code: E87.2 Status: Acute (4) Dehydration ICD Code: E86.0 Status: Acute (5) Hypotension ICD Code: I95.9 Status: Acute Assessment and Plan Acute urinary tract infection/ Septic shock Secondary to self catheterization. Complicated by urinary tract obstruction in the form of bladder distension. 01/31 urine culture-Klebsiella pneumoniae; 01/31 Blood culture-Klebsiella pneumoniae. Repeat blood culture growing gram- negative rods. - Will increase Zosyn to 4.5 g IV every 6 hours as renal function improved. - follow repeat blood cultures. - Infectious disease consult requested. - PT. Acute hypoxemic respiratory failure Unsure of etiology. Chest x-ray with mild pulmonary congestion. Crackles at the bases and mild wheezing appreciated. BNP elevated over 400. He does have a history of rheumatic fever as a child so valvular dysfunction is a possibility. Echocardiogram with ejection fraction 55-60%, mild TR and mild MR. Cardiac allergy consult appreciated. Status post Lasix. - Nasal cannula, wean as tolerated. - Incentive spirometry. - Duo nebs PRN. Urinary incontinence Urinary retention, self cath at home with coude catheter. 01/31 renal ultrasound- right renal cysts, non obstructing right renal stone, no hydronephrosis. Urology following, Usha VELIZ, patient known to Dr. Ivory. - Monitor BMP. Monitor electrolytes and replace as indicated. - Avoid nephrotoxins when possible. - Continue Calderon catheter until urology outpatient follow-up. - start Flomax to treat bladder spasms. Improved. Right upper extremity edema The patient complains of swelling in the right upper extremity. Ultrasound negative. - keep arm elevated. Bradycardia Unsure of baseline heart rate. Cardiology consult appreciated. - Monitor on telemetry. Hypokalemia Possibly secondary to Lasix. - Replete and monitor. PPx: Lovenox Discharge Planning Awaiting infectious disease evaluation Volodymyr Yates DO Feb 04, 2017 15:08
[2017-02-04] MEDS: PIPERACIL-TAZO 4.5 GM PREMIX 100 ML IV SCH ×2 (17:37→21:27)
[2017-02-05] VITALS (8 sets, daily range): BP systolic 122–139; BP diastolic 60–78; PULSE 74–85; RESP 14–20; TEMP 97.4–98.9; O2SAT 90–100
[2017-02-05] MEDS ORDERED: POTASSIUM CHLORIDE 20 MEQ CONTROLLED RELEASE TAB PO PRN (04:00)
[2017-02-05] MEDS: ENOXAPARIN SODIUM 40 MG/0.4 ML SYRINGE SQ SCH (04:25)
[2017-02-05] MEDS: PIPERACIL-TAZO 4.5 GM PREMIX 100 ML IV SCH ×2 (04:25→08:53)
[2017-02-05] MEDS: RESP: ALBUTEROL 2.5 MG/IPRATROPIUM 0.5 MG NEB (SCH) NEB ×3 (07:31→19:31)
[2017-02-05 07:58] LABS: BASOPHIL # 0.1 TH/MM3 (0-0.2); BASOPHIL % 0.7 % (0.0-2.0); EOSINOPHIL # 0.7 TH/MM3 (0-0.4); EOSINOPHIL % 6.9 % (0.0-4.0); HEMATOCRIT 37.9 % (39.0-51.0); HEMO FLAGS DIFF FINAL; LYMPH % 23.3 % (9.0-44.0); LYMPHOCYTE # 2.3 TH/MM3 (1.0-4.8); MEAN CELL VOLUME 95.6 FL (80.0-100.0); MEAN CORPUSCULAR HEMOGLOBIN 32.5 PG (27.0-34.0); MONO % 9.3 % (0.0-8.0); NEUT % 59.8 % (16.0-70.0); PLATELET COUNT 302 TH/MM3 (150-450); RED BLOOD COUNT 3.97 MIL/MM3 (4.50-5.90); RED CELL DISTRIBUTION WIDTH 12.8 % (11.6-17.2); WHITE BLOOD COUNT 10.1 TH/MM3 (4.0-11.0)
[2017-02-05 08:49] LABS: BICARBONATE 23.1 MEQ/L (21.0-32.0); POTASSIUM 3.7 MEQ/L (3.5-5.1)
[2017-02-05] MEDS: TAMSULOSIN HCL 0.4 MG CAP PO SCH (08:52)
[2017-02-05] MEDS: SODIUM CHLORIDE 0.9% FLUSH 10 ML FLUSH IV FLUSH SCH ×2 (08:53→21:16)
--- NOTE | 2017-02-05 11:29 | PD.ID.CON ---
History of Present Illness Service ID Consult Requested By Dr Yates Reason for Consult UTI, sepsis Primary Care Physician Arnaldo Canales M.D. Diagnoses: History of Present Illness 81-year-old male with past medical history of prostate cancer status post radiation, urinary incontinence and intermittent cath and recurrent UTIs presented to [facility] emergency department with 2 day history of chills and rigors. Emesis 3. No flank pain or hematuria. ED workup demonstrated U/a with pyuria, he has fever and leukocytosis, mild lactic acidosis Pt was started on broad spectrum abx Zosyn He has had recurrent UTI, and therefore states he takes Macrobid for ~5 days starting each time that he does I/O cath. He states he started macrobid about 3- 4 days ago which is the last time he did I/O cath. He grew out Kleb pneumo in 4/4 bottles of both sets of his blood clx, and in the urine clx as well Blood isolate is beltran S, urine has reistance to bactrim He has no longer chills no fever , no leukocytosis Review of Systems Except as stated in HPI: all other systems reviewed are Neg Past Family Social History Allergies: Coded Allergies: Codeine (Verified Allergy, Unknown, 01/29/17) Past Medical History Prostate cancer status post radiation 15-20 years ago Urinary incontinence Hard of hearing Past Surgical History Laparoscopic cholecystectomy Suprapubic urinary catheter placed 6-7 years ago (subsequently has been removed) Active Ordered Medications Medications where reviewed in EMR Antibiotics Include: zosyn Family History denies family history of cancer or heart disease Social History [id number] history of smoking. Quit at age 33. Drinks alcohol occasionally (wine) Denies use of illicit drugs and lives at home with his . Physical Exam Vital Signs Vital Signs Date Time Temp Pulse Resp B/P Pulse Ox O2 Delivery O2 Flow Rate FiO2 02/05/17 08:00 97.7 78 16 122/78 96 02/05/17 07:31 92 21 02/05/17 04:00 98.9 79 20 124/72 95 02/05/17 00:00 98.0 85 20 132/60 100 02/04/17 20:14 95 02/04/17 20:00 Room Air 02/04/17 20:00 72 02/04/17 20:00 99.2 92 20 138/63 96 02/04/17 16:00 98.2 80 20 122/64 92 02/04/17 12:00 97.8 81 20 114/58 96 Physical Exam CONSTITUTIONAL/GENERAL: This is an adequately nourished patient, in no apparent distress. TUBES/LINES/DRAINS: SKIN: No jaundice, rashes, or lesions. Skin temperature appropriate. Not diaphoretic. HEAD: Atraumatic. Normocephalic. EYES: Pupils equal and round and reactive. Extraocular motions intact. No scleral icterus. No injection or drainage. Fundi not examined. ENT: Hearing grossly normal. Nose without bleeding or purulent drainage. Oral mucosae without visible erythema, exudates, masses, or lesions. NECK: Trachea midline. Supple, nontender. CARDIOVASCULAR: Regular rate and rhythm without murmurs, gallops, or rubs. No JVD. Peripheral pulses symmetric. RESPIRATORY/CHEST: Symmetric, unlabored respirations. Clear to auscultation. Breath sounds equal bilaterally. No wheezes, rales, or rhonchi. GASTROINTESTINAL: Abdomen soft, non-tender, nondistended. No hepato-splenomegaly , or palpable masses. No guarding. Bowel sounds present. GENITOURINARY: Without palpable bladder distension. Calderon catheter in place with clear yellow urine MUSCULOSKELETAL: Extremities without clubbing, cyanosis, or edema. No joint tenderness or effusion noted. No calf tenderness. No mottling or clubbing. LYMPHATICS: No palpable cervical or supraclavicular adenopathy. NEUROLOGICAL: Awake and alert. Motor and sensory grossly within normal limits. Follows commands. Clear speech. Moves all extremities. PSYCHIATRIC: No obvious anxiety/depression. no apparent hallucinations or other psychotic thought process. Laboratory Laboratory Tests Test 02/05/17 07:37 White Blood Count 10.1 Red Blood Count 3.97 Hemoglobin 12.9 Hematocrit 37.9 Mean Corpuscular Volume 95.6 Mean Corpuscular Hemoglobin 32.5 Mean Corpuscular Hemoglobin 34.0 Concent Red Cell Distribution Width 12.8 Platelet Count 302 Mean Platelet Volume 8.2 Neutrophils (%) (Auto) 59.8 Lymphocytes (%) (Auto) 23.3 Monocytes (%) (Auto) 9.3 Eosinophils (%) (Auto) 6.9 Basophils (%) (Auto) 0.7 Neutrophils # (Auto) 6.0 Lymphocytes # (Auto) 2.3 Monocytes # (Auto) 0.9 Eosinophils # (Auto) 0.7 Basophils # (Auto) 0.1 CBC Comment DIFF FINAL Differential Comment Sodium Level 141 Potassium Level 3.7 Chloride Level 107 Carbon Dioxide Level 23.1 Anion Gap 11 Blood Urea Nitrogen 8 Creatinine 0.90 Estimat Glomerular Filtration 81 Rate Random Glucose 109 Calcium Level 8.9 Magnesium Level 2.0 Date/Time Procedure Status Source Growth 02/04/17 14:54 Aerobic Blood Culture - Preliminary Resulted Blood Peripheral NO GROWTH IN 1 DAY 02/04/17 14:54 Anaerobic Blood Culture - Preliminary Resulted Blood Peripheral NO GROWTH IN 1 DAY Result Diagram: 02/05/17 0737 02/05/17 0737 Imaging Last Impressions Chest X-Ray 02/03/17 0600 Signed Impressions: Service Date/Time: January 05:00 - CONCLUSION: Possible mild case of pulmonary venous congestion. Javad Rosales MD Upper Extremity Ultrasound 02/02/17 0000 Signed Impressions: Service Date/Time: January 00:28 - CONCLUSION: Normal examination. Javad Rosales MD Renal Ultrasound 01/30/17 0000 Signed Impressions: Service Date/Time: Monday, January 30, 2017 07:21 - CONCLUSION: There is no hydronephrosis. Right renal cyst. non Obstructing right renal stone. The kidneys are normal in size. Emmanuel Pulido MD FACR Assessment and Plan Assessment and Plan UTI with sepsis 2/2 Kleb pneumo Persistent bacteremia, Kleb - negative 2 D echo for veg, no h/o indwelling vaasc devices - no abscesses REC's: dc zosyn - fu repeat blood clx - if more + blood clx will need fu for persistent bacterimia start CFTX anticipate transition to oral abx (levaquine) Discussed Condition With Tammy Mccall MD Feb 05, 2017 11:29
[2017-02-05] MEDS ORDERED: POTASSIUM CHLORIDE 20 MEQ CONTROLLED RELEASE TAB PO ONE (12:45)
--- NOTE | 2017-02-05 13:03 | HHI.PR ---
Subjective Remarks The patient was resting comfortably in bed. He mentioned earlier that he had some bleeding from a wound on his scrotum. He also mentioned that he had some questionable blood in his stool. He said he talked with the infectious disease doctor earlier. No other acute complaints. Objective Vitals Vital Signs Date Time Temp Pulse Resp B/P Pulse Ox O2 Delivery O2 Flow Rate FiO2 02/05/17 12:00 98.2 74 14 139/63 96 02/05/17 08:00 97.7 78 16 122/78 96 02/05/17 08:00 Room Air 02/05/17 07:31 92 21 02/05/17 04:00 98.9 79 20 124/72 95 02/05/17 00:00 98.0 85 20 132/60 100 02/04/17 20:14 95 02/04/17 20:00 Room Air 02/04/17 20:00 72 02/04/17 20:00 99.2 92 20 138/63 96 02/04/17 16:00 98.2 80 20 122/64 92 I/O 02/04/17 02/04/17 02/04/17 02/05/17 02/05/17 02/05/17 07:00 15:00 23:00 07:00 15:00 23:00 Intake Total 340 ml 960 ml 135 ml 480 ml Output Total 1200 ml 725 ml 600 ml Balance -860 ml 235 ml 135 ml -120 ml Intake Oral 240 ml 960 ml 480 ml IV Total 100 ml 135 ml Output Urine Total 1200 ml 725 ml 600 ml Bladder Scan Volume Amount 700 ml # Bowel Movements 0 2 Result Diagram: 02/05/1737 02/05/17 0737 Imaging Last Impressions Chest X-Ray 02/03/17 0600 Signed Impressions: Service Date/Time: January 05:00 - CONCLUSION: Possible mild case of pulmonary venous congestion. Javad Rosales MD Upper Extremity Ultrasound 02/02/17 0000 Signed Impressions: Service Date/Time: January 00:28 - CONCLUSION: Normal examination. Javad Rosales MD Renal Ultrasound 01/30/17 0000 Signed Impressions: Service Date/Time: Monday, January 30, 2017 07:21 - CONCLUSION: There is no hydronephrosis. Right renal cyst. non Obstructing right renal stone. The kidneys are normal in size. Emmanuel Pulido MD FACR Objective Remarks GENERAL: Resting comfortably, in no apparent distress. SKIN: Warm and dry. HEAD: Atraumatic. Normocephalic. EYES: Pupils equal and round, 2 mm and reactive bilaterally. No scleral icterus. No injection or drainage. ENT: No nasal bleeding or discharge. Mucous membranes pink and moist. Uvula midline NECK: Trachea midline. No JVD. CARDIOVASCULAR: S1 and S2, regular, sinus rhythm on the monitor. No murmurs rubs or gallops appreciated. RESPIRATORY: Clear to auscultation. GASTROINTESTINAL: Abdomen soft. No tenderness, rebound, guarding. Bowel sounds present. No CVA tenderness. MUSCULOSKELETAL: Lower extremities without clubbing, cyanosis, or edema. No obvious deformities. Right upper extremity with slight edema. NEUROLOGICAL: Awake and alert. No obvious cranial nerve deficits noted hard of hearing. Motor grossly within normal limits. Moves all extremities spontaneously without focal deficit. PSYCH: Mood and affect appropriate. Medications and IVs Current Medications Medications (Trade) Dose Ordered Sig/Sushma Route Start Time Stop Time Status Last Admin (NS Flush) 2 ml UNSCH PRN IV FLUSH 01/29/17 21:30 (NS Flush) 2 ml BID IV FLUSH 01/30/17 09:00 02/05/17 08:53 (Zofran Inj) 4 mg Q6H PRN IVP 01/29/17 21:30 02/01/17 19:04 (Tylenol) 650 mg Q6H PRN PO 01/29/17 21:30 01/31/17 22:16 (Morphine Inj) 2 mg Q3H PRN IV 01/29/17 21:30 (Milk Of Magnesia Liq) 30 ml Q12H PRN PO 01/29/17 21:30 (Senokot) 17.2 mg Q12H PRN PO 01/29/17 21:30 (Dulcolax Supp) 10 mg DAILY PRN RECTAL 01/29/17 21:30 (Lactulose Liq) 30 ml DAILY PRN PO 01/29/17 21:30 (Brethine Inj) 1 mg UNSCH PRN SQ 01/30/17 03:00 (Lovenox Inj) 40 mg Q24H SQ 01/30/17 04:00 02/05/17 04:25 Tamsulosin HCl 0.4 mg 0.4 mg DAILY PO 02/03/17 12:00 02/05/17 08:52 (Rocephin Inj/NS Inj) 100 ml @ 200 mls/hr Q24H IV 02/05/17 14:00 (KCl) 20 meq ONCE ONCE PO 02/05/17 12:45 02/05/17 12:46 UNV Line: Central Venous Catheter Side: Right A/P Problem List: (1) UTI (urinary tract infection) ICD Code: N39.0 Status: Acute (2) Failure of outpatient treatment ICD Code: Z78.9 Status: Acute (3) Lactic acidosis ICD Code: E87.2 Status: Acute (4) Dehydration ICD Code: E86.0 Status: Acute (5) Hypotension ICD Code: I95.9 Status: Acute Assessment and Plan Acute urinary tract infection/ Septic shock Secondary to self catheterization. Complicated by urinary tract obstruction in the form of bladder distension. 01/31 urine culture-Klebsiella pneumoniae; 01/31 Blood culture-Klebsiella pneumoniae. Repeat blood culture also growing klebsiella. ID consult appreciated. - change Zosyn to ceftriaxone per ID. - follow repeat blood cultures. - PT. Acute hypoxemic respiratory failure Unsure of etiology. Chest x-ray with mild pulmonary congestion. Crackles at the bases and mild wheezing appreciated. BNP elevated over 400. He does have a history of rheumatic fever as a child so valvular dysfunction is a possibility. Echocardiogram with ejection fraction 55-60%, mild TR and mild MR. Cardiac allergy consult appreciated. Status post Lasix. - Nasal cannula, wean as tolerated. - Incentive spirometry. - Duo nebs PRN. Urinary incontinence Urinary retention, self cath at home with coude catheter. 01/31 renal ultrasound- right renal cysts, non obstructing right renal stone, no hydronephrosis. Urology following, Usha VELIZ, patient known to Dr. Ivory. - Monitor BMP. Monitor electrolytes and replace as indicated. - Avoid nephrotoxins when possible. - Continue Calderon catheter until urology outpatient follow-up. - start Flomax to treat bladder spasms. Improved. Right upper extremity edema The patient complains of swelling in the right upper extremity. Ultrasound negative. - keep arm elevated. Bradycardia Unsure of baseline heart rate. Cardiology consult appreciated. - Monitor on telemetry. Hypokalemia Possibly secondary to Lasix. - Replete and monitor. GIB The pt is concerned he has had black stools and thinks he saw blood in his stool. Hgb is stable. - Hemoccult pending. - PPI. - follow CBC. PPx: Lovenox Discharge Planning Awaiting clinical improvement Volodymyr Yates DO Feb 05, 2017 13:02
[2017-02-05] MEDS: cefTRIAXone INJ 2,000 MG in SODIUM CHLORIDE 0.9% INJ 100 ML IV SCH (13:40)
[2017-02-05] MEDS: PANTOPRAZOLE SOD 40 MG DELAYED RELEASE TAB PO SCH (13:42)
[2017-02-06] VITALS (8 sets, daily range): BP systolic 117–151; BP diastolic 58–77; PULSE 61–82; RESP 18–20; TEMP 97.4–99; O2SAT 90–94
[2017-02-06] MEDS: ENOXAPARIN SODIUM 40 MG/0.4 ML SYRINGE SQ SCH (05:54)
[2017-02-06] MEDS: ACETAMINOPHEN 325 MG TAB PO PRN ×2 (05:59→15:52)
[2017-02-06] MEDS: RESP: ALBUTEROL 2.5 MG/IPRATROPIUM 0.5 MG NEB (SCH) NEB ×2 (07:30→12:40)
[2017-02-06] MEDS: TAMSULOSIN HCL 0.4 MG CAP PO SCH (08:20)
[2017-02-06] MEDS: PANTOPRAZOLE SOD 40 MG DELAYED RELEASE TAB PO SCH (08:20)
[2017-02-06] MEDS: SODIUM CHLORIDE 0.9% FLUSH 10 ML FLUSH IV FLUSH SCH ×2 (08:20→20:15)
[2017-02-06 08:42] LABS: HEMATOCRIT 39.8 % (39.0-51.0); MEAN CELL VOLUME 97.9 FL (80.0-100.0); MEAN CORPUSCULAR HEMOGLOBIN 31.4 PG (27.0-34.0); MEAN CORPUSCULAR HGB CONC 32.1 % (32.0-36.0); PLATELET COUNT 361 TH/MM3 (150-450); RED BLOOD COUNT 4.07 MIL/MM3 (4.50-5.90); RED CELL DISTRIBUTION WIDTH 12.9 % (11.6-17.2); REVIEW FLAG FINAL; WHITE BLOOD COUNT 14.4 TH/MM3 (4.0-11.0)
[2017-02-06 09:06] LABS: BICARBONATE 23.5 MEQ/L (21.0-32.0); POTASSIUM 3.4 MEQ/L (3.5-5.1)
--- NOTE | 2017-02-06 11:23 | HHI.PR ---
Subjective Remarks Patient is feeling better and he reports he is ambulating well in seeking to discharge to home once discharge available. Blood cultures continue to be followed to ensure patient's status regarding bacteremia. She has no new complaints today and does not report any bloody stools. She is eating regular diet and tolerating this. Objective Vital Signs Date Time Temp Pulse Resp B/P Pulse Ox O2 Delivery O2 Flow Rate FiO2 02/06/17 08:00 97.4 82 20 117/58 94 02/06/17 07:32 94 21 02/06/17 04:00 Room Air 02/06/17 04:00 99.0 73 18 129/75 91 02/06/17 00:00 Room Air 02/06/17 00:00 98.7 74 18 136/60 92 02/05/17 20:00 Room Air 02/05/17 20:00 83 02/05/17 20:00 97.4 78 20 138/60 93 02/05/17 19:33 95 21 02/05/17 16:00 98.6 79 15 127/60 90 02/05/17 16:00 Room Air 02/05/17 12:00 98.2 74 14 139/63 96 02/05/17 12:00 Room Air I/O 02/05/17 02/05/17 02/05/17 02/06/17 02/06/17 02/06/17 07:00 15:00 23:00 07:00 15:00 23:00 Intake Total 480 ml 1000 ml 480 ml 360 ml Output Total 600 ml 1150 ml 400 ml 750 ml Balance -120 ml -150 ml 80 ml -390 ml Intake Oral 480 ml 1000 ml 480 ml 360 ml Output Urine Total 600 ml 1150 ml 400 ml 750 ml # Bowel Movements 0 0 Result Diagram: 02/06/17 0802/06/17 0800 Objective Remarks GENERAL: NAD, A&Ox3 HEAD: Normocephalic. NECK: Supple, trachea midline. No lymphadenopathy. EYES: No scleral icterus. No injection or drainage. CARDIOVASCULAR: Regular rate and rhythm without murmurs, gallops, or rubs. RESPIRATORY: Breath sounds equal bilaterally. No accessory muscle use. GASTROINTESTINAL: Abdomen soft, non-tender, nondistended. MUSCULOSKELETAL: No cyanosis, or edema. SKIN: Warm and dry. NEURO: No focal neurological deficitis. A/P Problem List: (1) UTI (urinary tract infection) ICD Code: N39.0 (2) Sepsis ICD Code: A41.9 Assessment and Plan Assessment and Plan 81-year-old male admitted secondary to UTI and septic shock. Monitoring blood cultures. Pending test for blood in stool. Acute urinary tract infection/ Septic shock Bacteremia Sepsis and septic shock has resolved. Etiology was Secondary to self catheterization. 6/12 urine culture-Klebsiella pneumoniae; 6/12 Blood culture-Klebsiella pneumoniae. Repeat blood cultures are negative on the first day Continue to monitor blood cultures Infectious disease consulted and following Ceftriaxone Acute hypoxemic respiratory failure May have been secondary to sepsis Improved Follow clinically Now off oxygen Continue incentive spirometry Urinary incontinence Urology following Avoid nephrotoxins Maintain Calderon catheter even at discharge Flomax continued Right upper extremity edema Slow improvement Continue to keep arm elevated when possible No DVT on workup Bradycardia Resolved Follow on telemetry Hypokalemia Resolved Monitor and replace if needed GIB Stable hemoglobin Follow CBC Occult blood study for stools pending. PPx: Lovenox held due to risk of GI bleed. SCDs. Discharge Planning Awaiting clinical improvement and negative blood cultures Problem Qualifiers (1) Sepsis: Qualified Code: A41.9 - Sepsis, due to unspecified organism Calderon Colbert MD Feb 06, 2017 11:22
[2017-02-06] MEDS: cefTRIAXone INJ 2,000 MG in SODIUM CHLORIDE 0.9% INJ 100 ML IV SCH (15:07)
[2017-02-07 00:30] VITALS: BP 130/69; PULSE 86; RESP 18; TEMP 99.6; O2SAT 92
[2017-02-07 04:06] VITALS: BP 131/82; PULSE 74; RESP 19; TEMP 99.2; O2SAT 92
[2017-02-07 07:36] LABS: HEMATOCRIT 38.9 % (39.0-51.0); MEAN CORPUSCULAR HEMOGLOBIN 31.5 PG (27.0-34.0); MEAN CORPUSCULAR HGB CONC 32.5 % (32.0-36.0); PLATELET COUNT 395 TH/MM3 (150-450); RED BLOOD COUNT 4.01 MIL/MM3 (4.50-5.90); RED CELL DISTRIBUTION WIDTH 12.9 % (11.6-17.2); REVIEW FLAG FINAL; WHITE BLOOD COUNT 13.3 TH/MM3 (4.0-11.0)
[2017-02-07 07:56] LABS: MAGNESIUM 2.1 MG/DL (1.5-2.5)
[2017-02-07 08:00] VITALS: BP 142/76; PULSE 70; PULSE 74; RESP 18; TEMP 98; O2SAT 95
[2017-02-07 08:30] VITALS: O2SAT 95
[2017-02-07] MEDS: PANTOPRAZOLE SOD 40 MG DELAYED RELEASE TAB PO SCH (09:23)
[2017-02-07] MEDS: TAMSULOSIN HCL 0.4 MG CAP PO SCH (09:23)
[2017-02-07] MEDS: SODIUM CHLORIDE 0.9% FLUSH 10 ML FLUSH IV FLUSH SCH (09:28)
--- NOTE | 2017-02-07 10:37 | HHI.PR ---
Subjective Remarks This is a pleasant 81 y/o who is been followed secondary to Bacteremia, stable in his bedroom seen in the presence of nurse Mr. Marrufo who is taking some data, he has Urosepsis secondary to Klebsiella and initially septic and aggressively hydrated, complained of Shortness of breath, mild bradycardia on monitor Status post IV Lasix, treated by ID specialist Doctor Demarco, he has history of Prostate Cancer, status post radiation therapy and urinary incontinence and intermittent Cath and recurrent UTIs, came to ER with 2 day history of chills and rigors, Emesis x 3, No lily pain or hematuria, he takes Macrobid for 5 days he grew Klebsiella Pneumonia in 4/4 bottles, he has resistance to Bactrim, also seen and discussed with Doctor Demarco he was recommended today to be discharged on Levaquin for seven days more. Objective Vital Signs Date Time Temp Pulse Resp B/P Pulse Ox O2 Delivery O2 Flow Rate FiO2 02/07/17 08:00 98.0 70 18 142/76 95 02/07/17 08:00 96 Room Air 21 02/07/17 08:00 74 02/07/17 04:06 Room Air 02/07/17 04:06 99.2 74 19 131/82 92 02/07/17 00:30 99.6 86 18 130/69 92 02/07/17 00:30 Room Air 02/06/17 20:47 68 02/06/17 20:00 Room Air 02/06/17 20:00 98.8 67 19 144/67 91 02/06/17 16:00 98.0 73 20 143/69 94 02/06/17 12:00 98.0 61 20 151/77 90 I/O 02/06/17 02/06/17 02/06/17 02/07/17 02/07/17 02/07/17 07:00 15:00 23:00 07:00 15:00 23:00 Intake Total 360 ml 640 ml 690 ml 180 ml Output Total 750 ml 1000 ml 475 ml 1450 ml Balance -390 ml -360 ml 215 ml -1270 ml Intake Oral 360 ml 600 ml 690 ml 180 ml IV Total 40 ml Output Urine Total 750 ml 1000 ml 475 ml 1450 ml Bladder Scan Volume Amount 700 ml # Bowel Movements 0 1 1 0 Result Diagram: 02/07/17 0702 02/07/17 07 Imaging Last Impressions Chest X-Ray 02/03/17 0600 Signed Impressions: Service Date/Time: January 05:00 - CONCLUSION: Possible mild case of pulmonary venous congestion. Javad Rosales MD Upper Extremity Ultrasound 02/02/17 0000 Signed Impressions: Service Date/Time: January 00:28 - CONCLUSION: Normal examination. Javad Rosales MD Renal Ultrasound 01/30/17 0000 Signed Impressions: Service Date/Time: Monday, January 30, 2017 07:21 - CONCLUSION: There is no hydronephrosis. Right renal cyst. non Obstructing right renal stone. The kidneys are normal in size. Emmanuel Pulido MD FACR Procedures Calderon Cath placement by Urology specialist. Other Results Laboratory Tests Test 02/05/17 02/07/17 07:37 07:02 Neutrophils (%) (Auto) 59.8 % Lymphocytes (%) (Auto) 23.3 % Monocytes (%) (Auto) 9.3 % Eosinophils (%) (Auto) 6.9 % Basophils (%) (Auto) 0.7 % Neutrophils # (Auto) 6.0 TH/MM3 Lymphocytes # (Auto) 2.3 TH/MM3 Monocytes # (Auto) 0.9 TH/MM3 Eosinophils # (Auto) 0.7 TH/MM3 Basophils # (Auto) 0.1 TH/MM3 CBC Comment DIFF FINAL Differential Comment White Blood Count 13.3 TH/MM3 Red Blood Count 4.01 MIL/MM3 Hemoglobin 12.6 GM/DL Hematocrit 38.9 % Mean Corpuscular Volume 97.0 FL Mean Corpuscular Hemoglobin 31.5 PG Mean Corpuscular Hemoglobin 32.5 % Concent Red Cell Distribution Width 12.9 % Platelet Count 395 TH/MM3 Mean Platelet Volume 8.1 FL Sodium Level 141 MEQ/L Potassium Level 4.0 MEQ/L Chloride Level 106 MEQ/L Carbon Dioxide Level 25.0 MEQ/L Anion Gap 10 MEQ/L Blood Urea Nitrogen 9 MG/DL Creatinine 0.82 MG/DL Estimat Glomerular Filtration 90 ML/MIN Rate Random Glucose 92 MG/DL Calcium Level 8.8 MG/DL Magnesium Level 2.1 MG/DL Objective Remarks GENERAL: NAD, A&Ox3 HEAD: Normocephalic. NECK: Supple, trachea midline. No lymphadenopathy. EYES: No scleral icterus. No injection or drainage. CARDIOVASCULAR: Regular rate and rhythm without murmurs, gallops, or rubs. RESPIRATORY: Breath sounds equal bilaterally. No accessory muscle use. GASTROINTESTINAL: Abdomen soft, non-tender, nondistended. MUSCULOSKELETAL: No cyanosis, or edema. SKIN: Warm and dry. NEURO: No focal neurological deficitis. Medications and IVs Current Medications Medications (Trade) Dose Ordered Sig/Sushma Route Start Time Stop Time Status Last Admin (NS Flush) 2 ml UNSCH PRN IV FLUSH 01/29/17 21:30 (NS Flush) 2 ml BID IV FLUSH 01/30/17 09:00 02/07/17 09:28 (Zofran Inj) 4 mg Q6H PRN IVP 01/29/17 21:30 02/01/17 19:04 (Tylenol) 650 mg Q6H PRN PO 01/29/17 21:30 02/06/17 15:52 (Morphine Inj) 2 mg Q3H PRN IV 01/29/17 21:30 (Milk Of Magnesia Liq) 30 ml Q12H PRN PO 01/29/17 21:30 (Senokot) 17.2 mg Q12H PRN PO 01/29/17 21:30 (Dulcolax Supp) 10 mg DAILY PRN RECTAL 01/29/17 21:30 (Lactulose Liq) 30 ml DAILY PRN PO 01/29/17 21:30 (Brethine Inj) 1 mg UNSCH PRN SQ 01/30/17 03:00 (Lovenox Inj) 40 mg Q24H SQ 01/30/17 04:00 Hold 02/06/17 05:54 Tamsulosin HCl 0.4 mg 0.4 mg DAILY PO 02/03/17 12:00 02/07/17 09:23 (Rocephin Inj/NS Inj) 100 ml @ 200 mls/hr Q24H IV 02/05/17 14:00 02/06/17 15:07 (Protonix) 40 mg DAILY PO 02/05/17 13:00 02/07/17 09:23 A/P Assessment and Plan 81-year-old male admitted secondary to UTI and septic shock. Monitoring blood cultures. Pending test for blood in stool. Acute urinary tract infection/ Septic shock Bacteremia Resolved Septic Shock, Secondary to self Urinary bladder catheterization 01/31 urine culture-Klebsiella pneumoniae; 01/31 Blood culture-Klebsiella pneumoniae. Repeat blood cultures are negative on the first day ID specialist following. Ceftriaxone. changed to Levaquin for seven days. Acute hypoxemic respiratory failure Resolved. Urinary incontinence Urology following Maintain Calderon catheter even at discharge Flomax continued Right upper extremity edema Slow improvement Continue to keep arm elevated when possible No DVT on workup Bradycardia Resolved Follow on telemetry GIB Stable hemoglobin Follow CBC PPx: Lovenox held due to risk of GI bleed. SCDs. Discharge Planning Discharge home and follow with PCP and Urology specialist as outpatient. Mino Arboleda MD Feb 07, 2017 10:37
[2017-02-07 12:00] VITALS: BP 123/59; PULSE 84; RESP 18; TEMP 98.8; O2SAT 91
[2017-02-07] MEDS: cefTRIAXone INJ 2,000 MG in SODIUM CHLORIDE 0.9% INJ 100 ML IV SCH (12:59)
--- NOTE | 2017-02-07 13:28 | HHI.IDPN ---
Subjective Subjective Remarks pt is doing well no co no fever repeat BC negatiove Antibiotics CFTX Allergies: Coded Allergies: Codeine (Verified Allergy, Unknown, 01/29/17) Objective . Vital Signs Date Time Temp Pulse Resp B/P Pulse Ox O2 Delivery O2 Flow Rate FiO2 02/07/17 12:00 98.8 84 18 123/59 91 02/07/17 08:30 95 21 02/07/17 08:00 98.0 70 18 142/76 95 02/07/17 08:00 96 Room Air 21 02/07/17 08:00 74 02/07/17 04:06 Room Air 02/07/17 04:06 99.2 74 19 131/82 92 02/07/17 00:30 99.6 86 18 130/69 92 02/07/17 00:30 Room Air 02/06/17 20:47 68 02/06/17 20:00 Room Air 02/06/17 20:00 98.8 67 19 144/67 91 02/06/17 16:00 98.0 73 20 143/69 94 02/06/17 02/06/17 02/07/17 15:00 23:00 07:00 Intake Total 640 ml 690 ml 180 ml Output Total 1000 ml 475 ml 1450 ml Balance -360 ml 215 ml -1270 ml Intake Oral 600 ml 690 ml 180 ml IV Total 40 ml Output Urine Total 1000 ml 475 ml 1450 ml # Bowel Movements 1 1 0 . Laboratory Tests Test 02/06/17 02/07/17 08:00 07:02 White Blood Count 14.4 TH/MM3 13.3 TH/MM3 Red Blood Count 4.07 MIL/MM3 4.01 MIL/MM3 Hemoglobin 12.8 GM/DL 12.6 GM/DL Hematocrit 39.8 % 38.9 % Mean Corpuscular Volume 97.9 FL 97.0 FL Mean Corpuscular Hemoglobin 31.4 PG 31.5 PG Mean Corpuscular Hemoglobin 32.1 % 32.5 % Concent Red Cell Distribution Width 12.9 % 12.9 % Platelet Count 361 TH/MM3 395 TH/MM3 Mean Platelet Volume 8.4 FL 8.1 FL Laboratory Tests Test 02/06/17 02/07/17 08:00 07:02 Sodium Level 140 MEQ/L 141 MEQ/L Potassium Level 3.4 MEQ/L 4.0 MEQ/L Chloride Level 106 MEQ/L 106 MEQ/L Carbon Dioxide Level 23.5 MEQ/L 25.0 MEQ/L Anion Gap 11 MEQ/L 10 MEQ/L Blood Urea Nitrogen 8 MG/DL 9 MG/DL Creatinine 0.84 MG/DL 0.82 MG/DL Estimat Glomerular Filtration 87 ML/MIN 90 ML/MIN Rate Random Glucose 109 MG/DL 92 MG/DL Calcium Level 8.5 MG/DL 8.8 MG/DL Magnesium Level 2.0 MG/DL 2.1 MG/DL Microbiology Date/Time Procedure Status Source Growth 02/04/17 14:53 Aerobic Blood Culture - Preliminary Resulted Blood Peripheral NO GROWTH IN 3 DAYS 02/04/17 14:53 Anaerobic Blood Culture - Preliminary Resulted Blood Peripheral NO GROWTH IN 3 DAYS 02/04/17 14:54 Aerobic Blood Culture - Preliminary Resulted Blood Peripheral NO GROWTH IN 3 DAYS 02/04/17 14:54 Anaerobic Blood Culture - Preliminary Resulted Blood Peripheral NO GROWTH IN 3 DAYS 02/06/17 11:56 Stool Occult Blood (KATJA) - Final Complete Stool Stool HEMOCCULT NEGATIVE Imaging Last Impressions Chest X-Ray 02/03/17 0600 Signed Impressions: Service Date/Time: January 05:00 - CONCLUSION: Possible mild case of pulmonary venous congestion. Javad Rosales MD Upper Extremity Ultrasound 02/02/17 0000 Signed Impressions: Service Date/Time: January 00:28 - CONCLUSION: Normal examination. Javad Rosales MD Renal Ultrasound 01/30/17 0000 Signed Impressions: Service Date/Time: Monday, January 30, 2017 07:21 - CONCLUSION: There is no hydronephrosis. Right renal cyst. non Obstructing right renal stone. The kidneys are normal in size. Emmanuel Pulido MD FACR Physical Exam CONSTITUTIONAL/GENERAL: This is an adequately nourished patient, in no apparent distress. TUBES/LINES/DRAINS: SKIN: No jaundice, rashes, or lesions. CARDIOVASCULAR: Regular rate and rhythm without murmurs, gallops, or rubs. No JVD. Peripheral pulses symmetric. RESPIRATORY/CHEST: Symmetric, unlabored respirations. Clear to auscultation. GASTROINTESTINAL: Abdomen soft, non-tender, nondistended. GENITOURINARY: Without palpable bladder distension. Archer catheter in place with clear yellow urine MUSCULOSKELETAL: Extremities without clubbing, cyanosis, or edema. NEUROLOGICAL: Awake and alert. Non focal PSYCHIATRIC: No obvious anxiety/depression. no apparent hallucinations or other psychotic thought process. Assessment & Plan Remarks UTI with sepsis 2/2 Kleb pneumo Persistent bacteremia, Kleb - negative 2 D echo for veg, no h/o indwelling vaasc devices - no abscesses now negative blood clx Leukocytosis - went up HIgh bladder volume despite archer (700) REC's: dc CFTX switch to oral levaquine x 1 more week rechk UA, C+S dw RN dw Tammy Rutherford MD Feb 07, 2017 13:28
[2017-02-07] MEDS ORDERED: LEVOFLOXACIN 750 MG TAB PO SCH (14:00)
[2017-02-07 15:09] LABS: BLOOD, URINE NEG (NEG); GLUCOSE,URINE NEG (NEG); KETONE, URINE NEG (NEG); MUCUS URINE FEW /lpf (OCC); NITRITE,URINE NEG (NEG); PH, URINE 7.5 (5.0-8.5); URINE COLOR LIGHT-YELLOW (YELLW/STRAW)
[2017-02-07 15:11] LABS: COMMENT (UR) CATH-CULT NOT IND; CULTURE IF INDICATED CATH CULTURE NOT IND
[2017-02-07 16:00] VITALS: BP 127/59; PULSE 69; RESP 18; TEMP 98.9; O2SAT 91
[2017-02-07] MEDS ORDERED: LEVO750T3 PO ×2 (16:40→17:34)
--- NOTE | 2017-02-07 16:42 | HHI.PR ---
Addendum to Inpatient Note Addendum Reason: Additional Documentation Additional Information pt's repeat UA unremarkable residuals are none OK to dc home with fu by Tammy Quiles MD Feb 07, 2017 16:41
[2017-02-07] MEDS ORDERED: TAMS5CAP PO (17:34)
[2017-02-07] MEDS ORDERED: PANT40TA3 PO (17:34)
[2017-02-07] MEDS ORDERED: MORP1SOL3 PO (17:34)
--- NOTE | 2017-02-07 17:41 | HHI.DS ---
Discharge Summary Admission Date Jan 29, 2017 at 21:51 Discharge Date: Feb 07, 2017 Admitting Diagnosis (1) UTI (urinary tract infection) ICD Code: N39.0 Diagnosis: Principal (2) Failure of outpatient treatment ICD Code: Z78.9 Diagnosis: Principal (3) Lactic acidosis ICD Code: E87.2 Diagnosis: Principal (4) Urinary retention ICD Code: R33.9 Diagnosis: Principal (5) Sepsis ICD Code: A41.9 Diagnosis: Principal Procedures Calderon Catheter placement. Brief History - From Admission This is an 81-year-old male with a PMH of Prostate CA, Urinary Incontinence requiring Self-Catheterization and h/o Recurrent UTI who presented to the ER w/ complaints of fever and chills starting earlier today. Has been on antibiotics for UTI x4 days, now w/ fever/chills. On arrival, BP 180/56, HR 89, O2 sat 96% on RA, Afebrile. In the ER, had transient episode of hypotension with BP 84/52 , HR 86 s/p IVF w/ improvement. The WBC normal, elevated neutrophil count. GFR 58. Lactic Acid 2.3, repeat pending. UA with UTI. CXR with minimal basilar atelectasis. S/p Zosyn in ER. CBC/BMP: 02/07/17 0702 02/07/17 0702 Significant Findings Laboratory Tests Test 02/05/17 02/06/17 02/07/17 02/07/17 07:37 08:00 07:02 14:20 Red Blood Count 3.97 MIL/MM3 4.07 MIL/MM3 4.01 MIL/MM3 (4.50-5.90) (4.50-5.90) (4.50-5.90) Hemoglobin 12.9 GM/DL 12.8 GM/DL 12.6 GM/DL (13.0-17.0) (13.0-17.0) (13.0-17.0) Hematocrit 37.9 % 38.9 % (39.0-51.0) (39.0-51.0) Monocytes (%) (Auto) 9.3 % (0.0-8.0) Eosinophils (%) (Auto) 6.9 % (0.0-4.0) Eosinophils # (Auto) 0.7 TH/MM3 (0-0.4) Estimat Glomerular Filtration 81 ML/MIN (>89) 87 ML/MIN (>89) Rate Random Glucose 109 MG/DL 109 MG/DL (74-106) (74-106) White Blood Count 14.4 TH/MM3 13.3 TH/MM3 (4.0-11.0) (4.0-11.0) Potassium Level 3.4 MEQ/L (3.5-5.1) Urine Mucus FEW /lpf (OCC) Imaging Last Impressions Chest X-Ray 02/03/17 0600 Signed Impressions: Service Date/Time: January 05:00 - CONCLUSION: Possible mild case of pulmonary venous congestion. Javad Rosales MD Upper Extremity Ultrasound 02/02/17 0000 Signed Impressions: Service Date/Time: January 00:28 - CONCLUSION: Normal examination. Javad Rosales MD Renal Ultrasound 01/30/17 0000 Signed Impressions: Service Date/Time: Monday, January 30, 2017 07:21 - CONCLUSION: There is no hydronephrosis. Right renal cyst. non Obstructing right renal stone. The kidneys are normal in size. Emmanuel Pulido MD FACR PE at Discharge GENERAL: Resting comfortably, in no apparent distress. SKIN: Warm and dry. HEAD: Atraumatic. Normocephalic. EYES: Pupils equal and round, 2 mm and reactive bilaterally. No scleral icterus. No injection or drainage. ENT: No nasal bleeding or discharge. Mucous membranes pink and moist. Uvula midline NECK: Trachea midline. No JVD. CARDIOVASCULAR: S1 and S2, regular, sinus rhythm on the monitor. No murmurs rubs or gallops appreciated. RESPIRATORY: Clear to auscultation. GASTROINTESTINAL: Abdomen soft. No tenderness, rebound, guarding. Bowel sounds present. No CVA tenderness. MUSCULOSKELETAL: Lower extremities without clubbing, cyanosis, or edema. No obvious deformities. Right upper extremity with slight edema. NEUROLOGICAL: Awake and alert. No obvious cranial nerve deficits noted hard of hearing. Motor grossly within normal limits. Moves all extremities spontaneously without focal deficit. PSYCH: Mood and affect appropriate. Hospital Course This is a pleasant 81 y/o who is been followed secondary to Bacteremia, stable in his bedroom seen in the presence of nurse Mr. Marrufo who is taking some data, he has Urosepsis secondary to Klebsiella and initially septic and aggressively hydrated, complained of Shortness of breath, mild bradycardia on monitor Status post IV Lasix, treated by ID specialist Doctor Demarco, he has history of Prostate Cancer, status post radiation therapy and urinary incontinence and intermittent Cath and recurrent UTIs, came to ER with 2 day history of chills and rigors, Emesis x 3, No lily pain or hematuria, he takes Macrobid for 5 days he grew Klebsiella Pneumonia in 4/4 bottles, he has resistance to Bactrim, also seen and discussed with Doctor Pal he was recommended today to be discharged on Levaquin for seven days more. Assessment and Plan 81-year-old male admitted secondary to UTI and septic shock. Monitoring blood cultures. Pending test for blood in stool. Acute urinary tract infection/ Septic shock Bacteremia Resolved Septic Shock, Secondary to self Urinary bladder catheterization 6/12 urine culture-Klebsiella pneumoniae; 6/12 Blood culture-Klebsiella pneumoniae. Repeat blood cultures are negative on the first day ID specialist following. Ceftriaxone. changed to Levaquin for seven days. Acute hypoxemic respiratory failure Resolved. Urinary incontinence Urology following Maintain Calderon catheter even at discharge Flomax continued Right upper extremity edema Slow improvement Continue to keep arm elevated when possible No DVT on workup Bradycardia Resolved Follow on telemetry GIB Stable hemoglobin Follow CBC PPx: Lovenox held due to risk of GI bleed. SCDs. Discharge Planning Discharge home and follow with PCP and Urology specialist as outpatient. Pt Condition on Discharge: Good Discharge Disposition: Discharge Home Discharge Time: > 30 minutes Discharge Instructions DIET: Follow Instructions for: Heart Healthy Diet Activities you can perform: Regular-No Restrictions Mino Arboleda MD Feb 07, 2017 17:41
== END 2017-02-07 18:42 | disposition home or self-care (01) | DRG 698 ==
LOC: NEPC 18:07 → NEDA 21:51 → N04A 22:28 → HIME 01-30 02:45 → N04A 02-02 12:54
PROVIDERS: ADMIT Internal Medicine; ATTEND Internal Medicine
PROC: 0T7D7ZZ Dilation of Urethra, Via Natural or Artificial Opening (ICD-10-PCS; principal; 2017-01-30)
PROC: 02HV33Z Insertion of Infusion Device into Superior Vena Cava, Percutaneous Approach (ICD-10-PCS; 2017-01-30)
DX: T83.518A Infection and inflammatory reaction due to other urinary catheter, initial encounter (principal); A41.59 Other Gram-negative sepsis; J96.01 Acute respiratory failure with hypoxia; R65.21 Severe sepsis with septic shock; I50.31 Acute diastolic (congestive) heart failure; E87.2 Acidosis; K92.2 Gastrointestinal hemorrhage, unspecified; N39.0 Urinary tract infection, site not specified; Z92.3 Personal history of irradiation; Z87.440 Personal history of urinary (tract) infections; Z85.46 Personal history of malignant neoplasm of prostate; R32 Unspecified urinary incontinence; H91.90 Unspecified hearing loss, unspecified ear; Z87.891 Personal history of nicotine dependence; E86.0 Dehydration; R00.1 Bradycardia, unspecified; M79.89 Other specified soft tissue disorders; E87.6 Hypokalemia; N32.89 Other specified disorders of bladder
CPT/HCPCS: 36556; 36600; 71010; 76775; 76937; 80048; 80053; 81001; 82272; 82805; 83605; 83735; 83880; 84100; 84155; 85007; 85025; 85027; 87040; 87077; 87086; 87149; 87186; 87205; 93005; 93306; 93971; 94150; 94640; 94664; 96361; 96365; 96375; J0696; J1650; J1940; J2405; J2543; J7030; J7040; P9045; P9612